=== PATIENT | male | born 1945 | race Caucasian/White ===

== ENCOUNTER 2023-02-08 11:10 | Emergency (ER) | payer OTHER ==
--- OUTSIDE RECORDS SUMMARY | 2023-02-08 11:16 | XMS REPORT | Continuity of Care Document ---
:1945 Author Organization [facility] t Address [address] [place] [address] Care Team Providers Name Role Phone Asked, No Pcp Primary Care Physician Unavailable REBA SAUNDERS Attending Clinician Unavailable Joseph Christopher MD Attending Clinician JOSEPH CHRISTOPHER Attending Clinician Unavailable Doctor Unassigned, [place] Attending Clinician Unavailable BRANDIE ORTIZ Attending Clinician Unavailable BRANDIE ORTIZ Attending Clinician Unavailable Brandie Ortiz DO Attending Clinician SAMSON BEE Attending Clinician Unavailable Reba Saunders MD Attending Clinician REBA SAUNDERS Admitting Clinician Unavailable JOSEPH CHRISTOPHER Admitting Clinician Unavailable Payers Payer Name Policy Type Policy Number Effective Date Expiration Date S ource [employer] DUAL [id number] 2021 COORDINATION HMO SNP 00:00:00 Problems Condition Condition Condition Status Onset Resolution Last Treating Co mments Source Name Details Category Date Date Treatment Clinician Date HFrEF HFrEF Disease Active Univers (heart (heart 4-10 ity of failure failure 00:00: [place] with with 00 Medical reduced reduced Branch ejection ejection fraction) fraction) PAD PAD Disease Active Univers (periphera (periphera 4-10 it y of l artery l artery 00:00: [place] disease) disease) 00 Medica l Branch Cigarette Cigarette Disease Active Uni vers smoker smoker 4-10 ity of 00:00: [place] 00 Medical Branch Benign Benign Disease Active 2020-06 Overview: Univer s prostatic prostatic 08-03 Formattin i ty of hyperplasi hyperplasi 00:00: g of this [place] a with a with 00 note Medical urinary urinary might be Branch frequency frequency different from the original. Added automatic ally from request for surgery [id number] Dizziness Dizziness Disease Active Met hodi 8 st 00:00: Hospita 00 l Cerebrovas Cerebrovas Disease Active M ethodi cular cular 12-21 st accident accident 00:00: Hospit a (CVA) (CVA) 00 l Unstable Unstable Disease Active Metho di angina angina 01-17 st 00:00: Hospita 00 l Leukocytos Leukocytos Disease Active M ethodi is is 01-17 st 00:00: Hospita 00 l Left upper Left upper Disease Active U nivers extremity extremity 01-01 ity of numbness numbness 00:00: [place] 00 Medical Branch Malnutriti Malnutriti Disease Active U nivers on on 01-01 ity of 00:00: [place] 00 Medical Branch Transient Transient Disease Active Met hodi global global [address] amnesia amnesia 00:00: Hospita 00 l Chest pain 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 TIA TIA Disease Active 2015-06 Univers (transient (transient 1-16 it y of ischemic ischemic 00:00: [place] attack) attack) 00 Medical Branch Essential Essential Disease Active 2015-06 Uni vers hypertensi hypertensi 1-16 it y of on on 00:00: [place] 00 Medical Branch Chest pain Chest pain Disease Active 2015-06 U nivers at rest at rest 1-15 ity of 00:00: [place] 00 Medical Branch Allergies, Adverse Reactions, Alerts Allergy Allergy Status Severity Reaction(s) Onset Inactive Treating Comm ents Source Name Type Date Date Clinician Penicill Propensi Active Rash Method i ins ty to 5-24 st adverse 00:00: Hospita reaction 00 l s to drug Penicill Propensi Active Rash 2015-06 Univer s ins ty to 1-15 ity of adverse 00:00: [place] reaction 00 Medical s Branch Penicill Propensi Active Rash 2015-06 Univer s ins ty to 1-15 ity of adverse 00:00: [place] reaction 00 Medical s Branch PENICILL Drug Active Rash 2015-06 Univers INS Class 1-15 ity of 00:00: [place] 00 [facility] Social History Social Habit Start Date Stop Date Quantity Comments Source History of tobacco Cigarette Smoker University of use [facility] Sexual [facility] Exposure to 2022-10-26 2022-11-05 Not sure University of SARS-CoV-2 (event) 00:00:00 12:54:00 [facility] Cigarette 2022-10-05 2022-10-05 University of pack-years 00:00:00 00:00:00 [facility] History of Social 2019-04-26 2019-04-[address] function 00:00:00 00:00:00 Hospital Tobacco Comment 2019-04-26 2019-04-26 5-6 cigs/day [facility] 00:00:00 00:00:00 Hospital Cigarettes smoked 2019-04-26 2019-04-[address] current (pack per 00:00:00 00:00:00 Hospita l day) - Reported Alcohol intake 2019-04-26 2019-04-26 Current [facility] 00:00:00 00:00:00 non-drinker of Hospital alcohol (finding) Tobacco use and 2019-04-26 2019-04-26 User of [facility] exposure 00:00:00 00:00:00 smokeless Hospital tobacco Sex Ass[birth year] At [birth year] [facility] 00:00:00 00:00:00 Hospital Smoking Status Start Date Stop Date Source Smokes tobacco daily 2022-10-05 00:00:00 [facility] Medical Branch Medications Ordered Filled Start Stop Current Ordering Indication Dosage Frequency Signature Comments Components Source Medication Medication Date Date Medication? Clinician (SIG) Name Name fluticasone Yes [id number] 1{puff} Inhale 1 Univers -umeclidin- 5-11 Puff in ity o f vilanter 00:00: the [place] (LE morning. Medical ELLIPTA) Branch 100-62.5-25 mcg DsDv albuterol Yes [id number] 2{puff} Inhale 2 Univers 90 5-11 Puffs ity of mcg/actuati 00:00: every 6 [place] as on inhaler 00 (six) Medical hours as Branch needed for Wheezing or Shortness of Breath. fluticasone Yes [id number] 1{puff} Inhale 1 Univers -umeclidin- 5-11 Puff in ity o f vilanter 00:00: the [place] (LEGY morning. Medical ELLIPTA) Branch 100-62.5-25 mcg DsDv albuterol Yes [id number] 2{puff} Inhale 2 Univers 90 5-11 Puffs ity of mcg/actuati 00:00: every 6 [place] as on inhaler 00 (six) Medical hours as Branch needed for Wheezing or Shortness of Breath. fluticasone Yes [id number] 1{puff} Inhale 1 Univers -umeclidin- 5-11 Puff in ity o f vilanter 00:00: the [place] (LEGY . Medical ELLIPTA) Branch 100-62.5-25 mcg DsDv albuterol 2022-0 Yes [id number] 2{puff} Inhale 2 Univers 90 5-11 Puffs ity of mcg/actuati 00:00: every 6 [place] as on inhaler 00 (six) Medical hours as Branch needed for Wheezing or Shortness of Breath. fluticasone 2022-0 Yes [id number] 1{puff} Inhale 1 Univers -umeclidin- 5-11 Puff in ity o f vilanter 00:00: the [place] (GY . Medical ELLIPTA) Branch 100-62.5-25 mcg DsDv albuterol 2022-0 Yes [id number] 2{puff} Inhale 2 Univers 90 5-11 Puffs ity of mcg/actuati 00:00: every 6 [place] as on inhaler 00 (six) Medical hours as Branch needed for Wheezing or Shortness of Breath. fluticasone 2022-0 Yes [id number] 1{puff} Inhale 1 Univers -umeclidin- 5-11 Puff in ity o f vilanter 00:00: the [place] (LE . Medical ELLIPTA) Branch 100-62.5-25 mcg DsDv albuterol 2022-0 Yes [id number] 2{puff} Inhale 2 Univers 90 5-11 Puffs ity of mcg/actuati 00:00: every 6 [place] as on inhaler 00 (six) Medical hours as Branch needed for Wheezing or Shortness of Breath. atorvastati 2022-0 Yes Univer s n 10 mg 5-09 ity of tablet 00:00: [place] 00 Medical Branch metFORMIN 2023-0 Yes Univers 500 mg 5-09 ity of tablet 00:00: [place] Medical [facility] atorvastati 2023-0 Yes Univer s n 10 mg 5-09 ity of tablet 00:00: 00 Medical Branch metFORMIN 2023-0 Yes Univers 500 mg 5-09 ity of tablet 00:00: Medical Branch atorvastati 2023-0 Yes Univer s n 10 mg 5-09 ity of tablet 00:00: [place] 00 Medical Branch metFORMIN 2023-0 Yes Univers 500 mg 5-09 ity of tablet 00:00: Medical Branch atorvastati 2022-0 Yes Univer s n 10 mg 5-09 ity of tablet 00:00: [place] Medical Branch metFORMIN 3-0 Yes Univers 500 mg 5-09 ity of tablet 00:00: [place] [facility] atorvastati 3-0 Yes Univer s n 10 mg 5-09 ity of tablet 00:00: [place] Medical [facility] metFORMIN 3-0 Yes Univers 500 mg 5-09 ity of tablet 00:00: [place] Medical Branch metoprolol 2022-0 2023- No 100mg Take 1 Uni vers succinate 4-10 04-10 tablet by ity of XL 100 mg 13:45: 00:00 mouth in [place] as 24 hr 13 :00 the Medical tablet morning. Branch metoprolol 2022-0 3- No 100mg Take 1 Uni vers succinate 4-10 04-10 tablet by ity of XL 100 mg 13:45: 00:00 mouth in [place] as 24 hr 13 :00 the Medical tablet morning. Branch sotaloL 80 2022-0 2023- No 80mg Take 1 Univ ers mg tablet 4-10 04-10 tablet by ity of 13:45: 00:00 mouth in [place] 07 :00 the Medical morning Branch and 1 tablet in the evening. sotaloL 80 3-0 3- No 80mg Take 1 Univ ers mg tablet 4-10 04-10 tablet by ity of 13:45: 00:00 mouth in [place] 07 :00 the Medical morning Branch and 1 tablet in the evening. rOPINIRole 2022-0 Yes 1mg Take 1 Unive rs 1 mg tablet 4-10 tablet by ity of 13:32: mouth at [place] [address] bedtime. Medical Branch pantoprazol 2022-0 Yes 40mg Take 1 Univ ers e 40 mg EC 4-10 tablet by ity of tablet 13:32: mouth in [place] [address] the Medical morning Branch and 1 tablet in the evening. furosemide 3-0 Yes 40mg Take 1 Unive rs 40 mg 4-10 tablet by ity of tablet 13:32: mouth in [place] [address] the Medical morning. Branch aspirin 81 3-0 Yes 81mg Take 1 Unive rs mg chewable 4-10 tablet by ity of tablet 13:32: mouth in [place] [address] the Medical morning. Branch traZODone 2022-0 Yes 100mg Take 1 Unive rs 100 mg 4-10 tablet by ity of tablet 13:32: mouth at [place] [address] bedtime. Medical Branch predniSONE 3-0 Yes 10mg Take 1 Unive rs 10 mg 4-10 tablet by ity of tablet 13:32: mouth in [place] [address] the Medical morning. Branch alfuzosin 2022-0 Yes 10mg Take 1 Univer s 10 mg 24 hr 4-10 tablet by ity of tablet 13:32: mouth in [place] [address] the Medical morning. Branch Iron, 2022-0 Yes Take by Univers Carbonyl 45 4-10 mouth. ity of mg Tab 13:32: [place] [address] Medical Branch spironolact 2022-0 Yes 25mg Take 1 Univ ers one 25 mg 4-10 tablet by ity o f tablet 13:32: mouth in [place] [address] the Medical morning Branch and 1 tablet in the evening. lisinopriL 2022-0 Yes 40mg Take 1 Unive rs 40 mg 4-10 tablet by ity of tablet 13:32: mouth in [place] [address] the Medical morning. Branch rOPINIRole 2022-0 Yes 1mg Take 1 Unive rs 1 mg tablet 4-10 tablet by ity of 13:32: mouth at [place] [address] bedtime. Medical Branch pantoprazol 2022-0 Yes 40mg Take 1 Univ ers e 40 mg EC 4-10 tablet by ity of tablet 13:32: mouth in [place] [address] the Medical morning Branch and 1 tablet in the evening. furosemide 3-0 Yes 40mg Take 1 Unive rs 40 mg 4-10 tablet by ity of tablet 13:32: mouth in [place] [address] the Medical morning. Branch aspirin 81 2022-0 Yes 81mg Take 1 Unive rs mg chewable 4-10 tablet by ity of tablet 13:32: mouth in [place] [address] the Medical morning. Branch traZODone 3-0 Yes 100mg Take 1 Unive rs 100 mg 4-10 tablet by ity of tablet 13:32: mouth at [place] [address] bedtime. Medical Branch predniSONE 3-0 Yes 10mg Take 1 Unive rs 10 mg 4-10 tablet by ity of tablet 13:32: mouth in [place] [address] the Medical morning. Branch alfuzosin 2022-0 Yes 10mg Take 1 Univer s 10 mg 24 hr 4-10 tablet by ity of tablet 13:32: mouth in [place] [address] the Medical morning. Branch Iron, 2022-0 Yes Take by Univers Carbonyl 45 4-10 mouth. ity of mg Tab 13:32: [place] [address] Medical Branch spironolact 2022-0 Yes 25mg Take 1 Univ ers one 25 mg 4-10 tablet by ity o f tablet 13:32: mouth in [place] [address] the Medical morning Branch and 1 tablet in the evening. lisinopriL 2022-0 Yes 40mg Take 1 Unive rs 40 mg 4-10 tablet by ity of tablet 13:32: mouth in [place] [address] the Medical morning. Branch rOPINIRole 2022-0 Yes 1mg Take 1 Unive rs 1 mg tablet 4-10 tablet by ity of 13:32: mouth at [place] [address] bedtime. Medical Branch pantoprazol 2022-0 Yes 40mg Take 1 Univ ers e 40 mg EC 4-10 tablet by ity of tablet 13:32: mouth in [place] [address] the Medical morning Branch and 1 tablet in the evening. furosemide 2022-0 Yes 40mg Take 1 Unive rs 40 mg 4-10 tablet by ity of tablet 13:32: mouth in [place] [address] the Medical morning. Branch aspirin 81 2022-0 Yes 81mg Take 1 Unive rs mg chewable 4-10 tablet by ity of tablet 13:32: mouth in [place] [address] the Medical morning. Branch traZODone 2022-0 Yes 100mg Take 1 Unive rs 100 mg 4-10 tablet by ity of tablet 13:32: mouth at [place] [address] bedtime. Medical Branch predniSONE 3-0 Yes 10mg Take 1 Unive rs 10 mg 4-10 tablet by ity of tablet 13:32: mouth in [place] [address] the Medical morning. Branch alfuzosin 2022-0 Yes 10mg Take 1 Univer s 10 mg 24 hr 4-10 tablet by ity of tablet 13:32: mouth in [place] [address] the Medical morning. Branch Iron, 2022-0 Yes Take by Univers Carbonyl 45 4-10 mouth. ity of mg Tab 13:32: [place] [address] Medical Branch spironolact 2022-0 Yes 25mg Take 1 Univ ers one 25 mg 4-10 tablet by ity o f tablet 13:32: mouth in [place] [address] the Medical morning Branch and 1 tablet in the evening. lisinopriL 2023-0 Yes 40mg Take 1 Unive rs 40 mg 4-10 tablet by ity of tablet 13:32: mouth in [place] [address] the Medical morning. Branch rOPINIRole 3-0 Yes 1mg Take 1 Unive rs 1 mg tablet 4-10 tablet by ity of 13:32: mouth at [place] [address] bedtime. Medical Branch pantoprazol 2023-0 Yes 40mg Take 1 Univ ers e 40 mg EC 4-10 tablet by ity of tablet 13:32: mouth in [place] [address] the Medical morning Branch and 1 tablet in the evening. furosemide 2023-0 Yes 40mg Take 1 Unive rs 40 mg 4-10 tablet by ity of tablet 13:32: mouth in [place] [address] the Medical morning. Branch aspirin 81 3-0 Yes 81mg Take 1 Unive rs mg chewable 4-10 tablet by ity of tablet 13:32: mouth in [place] [address] the Medical morning. Branch traZODone 3-0 Yes 100mg Take 1 Unive rs 100 mg 4-10 tablet by ity of tablet 13:32: mouth at [place] [address] bedtime. Medical Branch predniSONE 3-0 Yes 10mg Take 1 Unive rs 10 mg 4-10 tablet by ity of tablet 13:32: mouth in [place] [address] the Medical morning. Branch alfuzosin 3-0 Yes 10mg Take 1 Univer s 10 mg 24 hr 4-10 tablet by ity of tablet 13:32: mouth in [place] [address] the Medical morning. Branch Iron, 2022-0 Yes Take by Univers Carbonyl 45 4-10 mouth. ity of mg Tab 13:32: [place] [address] Medical Branch spironolact 3-0 Yes 25mg Take 1 Univ ers one 25 mg 4-10 tablet by ity o f tablet 13:32: mouth in [place] [address] the Medical morning Branch and 1 tablet in the evening. lisinopriL 2023-0 Yes 40mg Take 1 Unive rs 40 mg 4-10 tablet by ity of tablet 13:32: mouth in [place] [address] the Medical morning. Branch rOPINIRole 2023-0 Yes 1mg Take 1 Unive rs 1 mg tablet 4-10 tablet by ity of 13:32: mouth at [place] [address] bedtime. Medical Branch pantoprazol 2023-0 Yes 40mg Take 1 Univ ers e 40 mg EC 4-10 tablet by ity of tablet 13:32: mouth in [place] [address] the Medical morning Branch and 1 tablet in the evening. furosemide 2023-0 Yes 40mg Take 1 Unive rs 40 mg 4-10 tablet by ity of tablet 13:32: mouth in [place] [address] the Medical morning. Branch aspirin 81 2022-0 Yes 81mg Take 1 Unive rs mg chewable 4-10 tablet by ity of tablet 13:32: mouth in [place] [address] the Medical morning. Branch traZODone 3-0 Yes 100mg Take 1 Unive rs 100 mg 4-10 tablet by ity of tablet 13:32: mouth at [place] [address] bedtime. Medical Branch predniSONE 3-0 Yes 10mg Take 1 Unive rs 10 mg 4-10 tablet by ity of tablet 13:32: mouth in [place] [address] the Medical morning. Branch alfuzosin 2022-0 Yes 10mg Take 1 Univer s 10 mg 24 hr 4-10 tablet by ity of tablet 13:32: mouth in [place] [address] the Medical morning. Branch Iron, 2022-0 Yes Take by Univers Carbonyl 45 4-10 mouth. ity of mg Tab 13:32: [place] [address] Medical Branch spironolact 2022-0 Yes 25mg Take 1 Univ ers one 25 mg 4-10 tablet by ity o f tablet 13:32: mouth in [place] [address] the Medical morning Branch and 1 tablet in the evening. lisinopriL 2022-0 Yes 40mg Take 1 Unive rs 40 mg 4-10 tablet by ity of tablet 13:32: mouth in [place] [address] the Medical morning. Branch rOPINIRole 2022-0 Yes 1mg Take 1 Unive rs 1 mg tablet 4-10 tablet by ity of 13:32: mouth at [place] [address] bedtime. Medical Branch pantoprazol 3-0 Yes 40mg Take 1 Univ ers e 40 mg EC 4-10 tablet by ity of tablet 13:32: mouth in [place] [address] the Medical morning Branch and 1 tablet in the evening. furosemide 2023-0 Yes 40mg Take 1 Unive rs 40 mg 4-10 tablet by ity of tablet 13:32: mouth in [place] [address] the Medical morning. Branch aspirin 81 2022-0 Yes 81mg Take 1 Unive rs mg chewable 4-10 tablet by ity of tablet 13:32: mouth in [place] [address] the Medical morning. Branch traZODone 2023-0 Yes 100mg Take 1 Unive rs 100 mg 4-10 tablet by ity of tablet 13:32: mouth at [place] [address] bedtime. Medical Branch predniSONE 2023-0 Yes 10mg Take 1 Unive rs 10 mg 4-10 tablet by ity of tablet 13:32: mouth in [place] [address] the Medical morning. Branch alfuzosin 3-0 Yes 10mg Take 1 Univer s 10 mg 24 hr 4-10 tablet by ity of tablet 13:32: mouth in [place] [address] the Medical morning. Branch Iron, 2022-0 Yes Take by Univers Carbonyl 45 4-10 mouth. ity of mg Tab 13:32: [place] [address] Medical Branch spironolact 3-0 Yes 25mg Take 1 Univ ers one 25 mg 4-10 tablet by ity o f tablet 13:32: mouth in [place] [address] the Medical morning Branch and 1 tablet in the evening. lisinopriL 2022-0 Yes 40mg Take 1 Unive rs 40 mg 4-10 tablet by ity of tablet 13:32: mouth in [place] [address] the Medical morning. Branch rOPINIRole 2022-0 Yes 1mg Take 1 Unive rs 1 mg tablet 4-10 tablet by ity of 13:32: mouth at [place] [address] bedtime. Medical Branch pantoprazol 2022-0 Yes 40mg Take 1 Univ ers e 40 mg EC 4-10 tablet by ity of tablet 13:32: mouth in [place] [address] the Medical morning Branch and 1 tablet in the evening. furosemide 3-0 Yes 40mg Take 1 Unive rs 40 mg 4-10 tablet by ity of tablet 13:32: mouth in [place] [address] the Medical morning. Branch aspirin 81 3-0 Yes 81mg Take 1 Unive rs mg chewable 4-10 tablet by ity of tablet 13:32: mouth in [place] [address] the Medical morning. Branch traZODone 3-0 Yes 100mg Take 1 Unive rs 100 mg 4-10 tablet by ity of tablet 13:32: mouth at [place] [address] bedtime. Medical Branch predniSONE 3-0 Yes 10mg Take 1 Unive rs 10 mg 4-10 tablet by ity of tablet 13:32: mouth in [place] [address] the Medical morning. Branch alfuzosin 3-0 Yes 10mg Take 1 Univer s 10 mg 24 hr 4-10 tablet by ity of tablet 13:32: mouth in [place] [address] the Medical morning. Branch Iron, 2022-0 Yes Take by Univers Carbonyl 45 4-10 mouth. ity of mg Tab 13:32: [place] [address] Medical Branch spironolact 2022-0 Yes 25mg Take 1 Univ ers one 25 mg 4-10 tablet by ity o f tablet 13:32: mouth in [place] [address] the Medical morning Branch and 1 tablet in the evening. lisinopriL 2022-0 Yes 40mg Take 1 Unive rs 40 mg 4-10 tablet by ity of tablet 13:32: mouth in [place] [address] the Medical morning. Branch rOPINIRole 2022-0 Yes 1mg Take 1 Unive rs 1 mg tablet 4-10 tablet by ity of 13:32: mouth at [place] [address] bedtime. Medical Branch pantoprazol 2022-0 Yes 40mg Take 1 Univ ers e 40 mg EC 4-10 tablet by ity of tablet 13:32: mouth in [place] [address] the Medical morning Branch and 1 tablet in the evening. furosemide 2022-0 Yes 40mg Take 1 Unive rs 40 mg 4-10 tablet by ity of tablet 13:32: mouth in [place] [address] the Medical morning. Branch aspirin 81 2022-0 Yes 81mg Take 1 Unive rs mg chewable 4-10 tablet by ity of tablet 13:32: mouth in [place] [address] the Medical morning. Branch traZODone 2022-0 Yes 100mg Take 1 Unive rs 100 mg 4-10 tablet by ity of tablet 13:32: mouth at [place] [address] bedtime. Medical Branch predniSONE 2022-0 Yes 10mg Take 1 Unive rs 10 mg 4-10 tablet by ity of tablet 13:32: mouth in [place] [address] the Medical morning. Branch alfuzosin 2022-0 Yes 10mg Take 1 Univer s 10 mg 24 hr 4-10 tablet by ity of tablet 13:32: mouth in [place] [address] the Medical morning. Branch Iron, 2022-0 Yes Take by Univers Carbonyl 45 4-10 mouth. ity of mg Tab 13:32: [place] [address] Medical Branch spironolact 2022-0 Yes 25mg Take 1 Univ ers one 25 mg 4-10 tablet by ity o f tablet 13:32: mouth in [place] [address] the Medical morning Branch and 1 tablet in the evening. lisinopriL 2022-0 Yes 40mg Take 1 Unive rs 40 mg 4-10 tablet by ity of tablet 13:32: mouth in [place] 11 the Medical morning. Branch carvediloL 3-0 Yes [id number] 25mg Take 1 U nivers 25 mg 4-10 tablet by ity of tablet 00:00: mouth in [place] 00 the [facility] morning [place] and 1 tablet in the evening. Take with meals. carvediloL 2023-0 Yes [id number] 25mg Take 1 U nivers 25 mg 4-10 tablet by ity of tablet 00:00: mouth in [place] 00 the [facility] morning [place] and 1 tablet in the evening. Take with meals. carvediloL 3-0 Yes [id number] 25mg Take 1 U nivers 25 mg 4-10 tablet by ity of tablet 00:00: mouth in [place] [address] the [facility] morning [place] and 1 tablet in the evening. Take with meals. carvediloL 3-0 Yes [id number] 25mg Take 1 U nivers 25 mg 4-10 tablet by ity of tablet 00:00: mouth in [place] [address] the [facility] and 1 tablet in the evening. Take with meals. carvediloL 3-0 Yes [id number] 25mg Take 1 U nivers 25 mg 4-10 tablet by ity of tablet 00:00: mouth in [place] [address] the [facility] and 1 tablet in the evening. Take with meals. carvediloL 3-0 Yes [id number] 25mg Take 1 U nivers 25 mg 4-10 tablet by ity of tablet 00:00: mouth in [place] [address] the [facility] and 1 tablet in the evening. Take with meals. carvediloL 3-0 Yes [id number] 25mg Take 1 U nivers 25 mg 4-10 tablet by ity of tablet 00:00: mouth in [address] and 1 tablet in the evening. Take with meals. carvediloL 3-0 Yes [id number] 25mg Take 1 U nivers 25 mg 4-10 tablet by ity of tablet 00:00: mouth in [address] and 1 tablet in the evening. Take with meals. spironolact 2020-06 Yes 25mg Take 25 mg Univers one 25 mg 2-06 by mouth 2 ity of tablet 11:30: (two) [place] 41 times Medical daily. Branch spironolact 2020-06 Yes 25mg Take 25 mg Univers one 25 mg 2-06 by mouth 2 ity of tablet 11:30: (two) [place] 41 times Medical daily. Branch spironolact 2020-06 Yes 25mg Take 25 mg Univers one 25 mg 2-06 by mouth 2 ity of tablet 11:30: (two) [place] 41 times Medical daily. Branch spironolact 2020-06 Yes 25mg Take 25 mg Univers one 25 mg 2-06 by mouth 2 ity of tablet 11:30: (two) [place] 41 times Medical daily. Branch aspirin 81 2020-06 Yes 81mg Take 81 mg U nivers mg chewable 2-06 by mouth ity of tablet 11:29: daily. [place] [address] Medical Branch traZODone 2020-06 Yes 100mg Take 100 Uni vers 100 mg 2-06 mg by ity of tablet 11:29: mouth at [place] [address] bedtime. Medical Branch metoprolol 2020-06 Yes 100mg Take 100 Un emmie succinate 2-06 mg by ity of XL 100 mg 11:29: mouth [place] 24 hr 31 daily. Medical tablet Branch predniSONE 2020-06 Yes 10mg Take 10 mg U nivers 10 mg 2-06 by mouth ity of tablet 11:29: daily. [place] [address] Medical Branch alfuzosin 2020-06 Yes 10mg Take 10 mg Un emmie 10 mg 24 hr 2-06 by mouth ity of tablet 11:29: daily. [place] [address] Medical Branch sotaloL 80 2020-06 Yes 80mg Take 80 mg U nivers mg tablet 2-06 by mouth 2 ity of 11:29: (two) [place] [address] times Medical daily. Branch Iron, 2020-06 Yes Take by Univers Carbonyl 45 2-06 mouth. ity of mg Tab 11:29: [place] [address] Medical Branch aspirin 81 2020-06 Yes 81mg Take 81 mg U nivers mg chewable 2-06 by mouth ity of tablet 11:29: daily. [place] [address] Medical Branch traZODone 2020-06 Yes 100mg Take 100 Uni vers 100 mg 2-06 mg by ity of tablet 11:29: mouth at [place] [address] bedtime. Medical Branch metoprolol 2020-06 Yes 100mg Take 100 Un emmie succinate 2-06 mg by ity of XL 100 mg 11:29: mouth [place] 24 hr 31 daily. Medical tablet Branch predniSONE 2020-06 Yes 10mg Take 10 mg U nivers 10 mg 2-06 by mouth ity of tablet 11:29: daily. [place] [address] Medical Branch alfuzosin 2020-06 Yes 10mg Take 10 mg Un emmie 10 mg 24 hr 2-06 by mouth ity of tablet 11:29: daily. [place] [address] Medical Branch sotaloL 80 2020-06 Yes 80mg Take 80 mg U nivers mg tablet 2-06 by mouth 2 ity of 11:29: (two) [place] [address] times Medical daily. Branch Iron, 2020-06 Yes Take by Univers Carbonyl 45 2-06 mouth. ity of mg Tab 11:29: [place] [address] Medical Branch aspirin 81 2020-06 Yes 81mg Take 81 mg U nivers mg chewable 2-06 by mouth ity of tablet 11:29: daily. [place] [address] Medical Branch traZODone 2020-06 Yes 100mg Take 100 Uni vers 100 mg 2-06 mg by ity of tablet 11:29: mouth at [place] [address] bedtime. Medical Branch metoprolol 2020-06 Yes 100mg Take 100 Un emmie succinate 2-06 mg by ity of XL 100 mg 11:29: mouth [place] 24 hr 31 daily. Medical tablet Branch predniSONE 2020-06 Yes 10mg Take 10 mg U nivers 10 mg 2-06 by mouth ity of tablet 11:29: daily. [place] [address] Medical Branch alfuzosin 2020-06 Yes 10mg Take 10 mg Un emmie 10 mg 24 hr 2-06 by mouth ity of tablet 11:29: daily. [place] [address] Medical Branch sotaloL 80 2020-06 Yes 80mg Take 80 mg U nivers mg tablet 2-06 by mouth 2 ity of 11:29: (two) [place] [address] times Medical daily. Branch Iron, 2020-06 Yes Take by Univers Carbonyl 45 2-06 mouth. ity of mg Tab 11:29: [place] [address] Medical Branch aspirin 81 2020-06 Yes 81mg Take 81 mg U nivers mg chewable 2-06 by mouth ity of tablet 11:29: daily. [place] [address] Medical Branch traZODone 2020-06 Yes 100mg Take 100 Uni vers 100 mg 2-06 mg by ity of tablet 11:29: mouth at [place] [address] bedtime. Medical Branch metoprolol 2020-06 Yes 100mg Take 100 Un emmie succinate 2-06 mg by ity of XL 100 mg 11:29: mouth [place] 24 hr 31 daily. Medical tablet Branch predniSONE 2020-06 Yes 10mg Take 10 mg U nivers 10 mg 2-06 by mouth ity of tablet 11:29: daily. [place] [address] Medical Branch alfuzosin 2020-06 Yes 10mg Take 10 mg Un emmie 10 mg 24 hr 2-06 by mouth ity of tablet 11:29: daily. [place] [address] Medical Branch sotaloL 80 2020-06 Yes 80mg Take 80 mg U nivers mg tablet 2-06 by mouth 2 ity of 11:29: (two) [place] 31 times Medical daily. Branch Iron, 2020-06 Yes Take by Univers Carbonyl 45 2-06 mouth. ity of mg Tab 11:29: [place] [facility] rOPINIRole 2020-06 Yes 1mg Take 1 mg Un emmie 1 mg tablet 2-06 by mouth ity of 11:29: at [place] 30 bedtime. Medical Branch pantoprazol 2020-06 Yes 40mg Take 40 mg Univers e 40 mg EC 2-06 by mouth 2 ity of tablet 11:29: (two) [place] 30 times Medical daily. Branch furosemide 2020-06 Yes 40mg Take 40 mg U nivers 40 mg 2-06 by mouth ity of tablet 11:29: daily. [place] [facility] rOPINIRole 2020-06 Yes 1mg Take 1 mg Un emmie 1 mg tablet 2-06 by mouth ity of 11:29: at [place] 30 bedtime. Medical Branch pantoprazol 2020-06 Yes 40mg Take 40 mg Univers e 40 mg EC 2-06 by mouth 2 ity of tablet 11:29: (two) [place] 30 times Medical daily. Branch furosemide 2020-06 Yes 40mg Take 40 mg U nivers 40 mg 2-06 by mouth ity of tablet 11:29: daily. [place] [facility] rOPINIRole 2020-06 Yes 1mg Take 1 mg Un emmie 1 mg tablet 2-06 by mouth ity of 11:29: at [place] 30 bedtime. Medical Branch pantoprazol 2020-06 Yes 40mg Take 40 mg Univers e 40 mg EC 2-06 by mouth 2 ity of tablet 11:29: (two) [place] 30 times Medical daily. Branch furosemide 2020-06 Yes 40mg Take 40 mg U nivers 40 mg 2-06 by mouth ity of tablet 11:29: daily. [place] [address] Medical Branch rOPINIRole 2020-06 Yes 1mg Take 1 mg Un emmie 1 mg tablet 2-06 by mouth ity of 11:29: at [place] 30 bedtime. Medical Branch pantoprazol 2020-06 Yes 40mg Take 40 mg Univers e 40 mg EC 2-06 by mouth 2 ity of tablet 11:29: (two) [place] 30 times Medical daily. Branch furosemide 2020-06 Yes 40mg Take 40 mg U nivers 40 mg 2-06 by mouth ity of tablet 11:29: daily. [place] [address] Medical Branch aspirin 325 2020-06- 325mg Take 325 Univers mg tablet 08-03 12-06 mg by ity of 11:25: 00:00 mouth [place] 23 :00 daily. Medical Branch aspirin 0 Yes 325mg QD Take 325 Metho di (ECOTRIN) 8-[address] 325 MG 11:28: mouth [facility] enter[facility] 30 daily. l coated tablet lisinopril Yes 20mg QD Take 20 mg M ethodi (PRINIVIL,Z 8-[address] ESTRIL) 20 11:28: daily. Hospi ta mg tablet 30 l atorvastati Yes 10mg QD Take 10 mg Methodi n (LIPITOR) 8-[address] 10 MG 11:28: daily. Hospita tablet 30 l aspirin 2018-0 Yes 325mg QD Take 325 Metho di (ECOTRIN) 8-[address] 325 MG 11:28: mouth [facility] enteric 30 daily. l coated tablet lisinopril Yes 20mg QD Take 20 mg M ethodi (PRINIVIL,Z 8-[address] ESTRIL) 20 11:28: daily. Hospi ta mg tablet 30 l atorvastati 2019 Yes 10mg QD Take 10 mg Methodi n (LIPITOR) 8-[address] 10 MG 11:28: daily. Hospita tablet 30 l aspirin 2019-0 Yes 325mg QD Take 325 Metho di (ECOTRIN) 8-[address] 325 MG 11:28: mouth [facility]osp[facility] enteric 30 daily. l coated tablet lisinopril Yes 20mg QD Take 20 mg M ethodi (PRINIVIL,Z 8-[address] ESTRIL) 20 11:28: daily. Hospi ta mg tablet 30 l atorvastati 2019-0 Yes 10mg QD Take 10 mg Methodi n (LIPITOR) 8-[address] 10 MG 11:28: daily. Hospita tablet 30 l aspirin 2019-0 Yes 325mg QD Take 325 Metho di (ECOTRIN) 8-[address] 325 MG 11:28: mouth [facility]ospita enteric 30 daily. l coated tablet lisinopril 2019-0 Yes 20mg QD Take 20 mg M ethodi (PRINIVIL,Z 8-[address] ESTRIL) 20 11:28: daily. Hospi ta mg tablet 30 l atorvastati 2019-0 Yes 10mg QD Take 10 mg Methodi n (LIPITOR) 8-[address] 10 MG 11:28: daily. Hospita tablet 30 l aspirin 2019-0 Yes 325mg QD Take 325 Metho di (ECOTRIN) 8-[address] 325 MG 11:28: mouth [facility]ospita enteric 30 daily. l coated tablet lisinopril 20190 Yes 20mg QD Take 20 mg M ethodi (PRINIVIL,Z 8-[address] ESTRIL) 20 11:28: daily. Hospi ta mg tablet 30 l atorvastati 20190 Yes 10mg QD Take 10 mg Methodi n (LIPITOR) 8-[address] 10 MG 11:28: daily. Hospita tablet 30 l aspirin 2019-0 Yes 325mg QD Take 325 Metho di (ECOTRIN) 8-[address] 325 MG 11:28: mouth [facility]ospita enteric 30 daily. l coated tablet lisinopril 2019-0 Yes 20mg QD Take 20 mg M ethodi (PRINIVIL,Z 8-[address] ESTRIL) 20 11:28: daily. Hospi ta mg tablet 30 l atorvastati 2019-0 Yes 10mg QD Take 10 mg Methodi n (LIPITOR) 8-[address] 10 MG 11:28: daily. Hospita tablet 30 l aspirin 2019-0 Yes 325mg QD Take 325 Metho di (ECOTRIN) 8-[address] 325 MG 11:28: mouth [facility]ospita enteric 30 daily. l coated tablet lisinopril 2019-0 Yes 20mg QD Take 20 mg M ethodi (PRINIVIL,Z 8-[address] ESTRIL) 20 11:28: daily. Hospi ta mg tablet 30 l atorvastati Yes 10mg QD Take 10 mg Methodi n (LIPITOR) 8-[address] 10 MG 11:28: daily. Hospita tablet 30 l alfuzosin 2017-06 Yes 10mg QD Take 10 mg Me thodi (UROXATRAL) 0-[address] 10 mg 24 hr 00:00: daily. Hosp aury tablet 00 l alfuzosin 2017-06 Yes 10mg QD Take 10 mg Me thodi (UROXATRAL) 0-[address] 10 mg 24 hr 00:00: daily. Hosp aury tablet 00 l alfuzosin 2017-06 Yes 10mg QD Take 10 mg Me thodi (UROXATRAL) 0-[address] 10 mg 24 hr 00:00: daily. Hosp aury tablet 00 l alfuzosin 2017-06 Yes 10mg QD Take 10 mg Me thodi (UROXATRAL) 0-[address] 10 mg 24 hr 00:00: daily. Hosp aury tablet 00 l alfuzosin 2017-06 Yes 10mg QD Take 10 mg Me thodi (UROXATRAL) 0-[address] 10 mg 24 hr 00:00: daily. Hosp aury tablet 00 l alfuzosin 2017-06 Yes 10mg QD Take 10 mg Me thodi (UROXATRAL) 0-[address] 10 mg 24 hr 00:00: daily. Hosp aury tablet 00 l alfuzosin 2017-06 Yes 10mg QD Take 10 mg Me thodi (UROXATRAL) 0-[address] 10 mg 24 hr 00:00: daily. Hosp aury tablet 00 l metoprolol Yes 25mg Q.5D 25 mg 2 Meth [place] tartrate 9-05 (two) st (LOPRESSOR) 00:00: times a Hos chhaya 25 mg day. l tablet metoprolol Yes 25mg Q.5D 25 mg 2 Meth [place] tartrate 9-05 (two) st (LOPRESSOR) 00:00: times a Hos chhaya 25 mg day. l tablet metoprolol Yes 25mg Q.5D 25 mg 2 Meth [place] tartrate 9-05 (two) st (LOPRESSOR) 00:00: times a Hos chhaya 25 mg day. l tablet metoprolol Yes 25mg Q.5D 25 mg 2 Meth [place] tartrate 9-05 (two) st (LOPRESSOR) 00:00: times a Hos chhaya 25 mg 00 day. l tablet metoprolol Yes 25mg Q.5D 25 mg 2 Meth [place] tartrate 9-05 (two) st (LOPRESSOR) 00:00: times a Hos chhaya 25 mg 00 day. l tablet metoprolol Yes 25mg Q.5D 25 mg 2 Meth [place] tartrate 9-05 (two) st (LOPRESSOR) 00:00: times a Hos chhaya 25 mg 00 day. l tablet metoprolol Yes 25mg Q.5D 25 mg 2 Meth [place] tartrate 905 (two) st (LOPRESSOR) 00:00: times a Hos chhaya 25 mg 00 day. l tablet pantoprazol 2020- No 40mg Take 1 Uni vers e 40 mg EC 01-03 tablet by ity of tablet 00:00: 00:00 mouth [place] 00 :00 daily. Medical Branch nitroglycer 2020- No .4mg Place 1 Un emmie in 0.4 mg 01-02 tablet ity of sublingual 00:00: 00:00 [place] tablet 00 :00 tongue Medical every 5 Branch (five) minutes as needed for Chest pain. clopidogrel 2020- No 75mg Take 1 Uni vers (PLAVIX) 75 01-02 tablet by it y of mg tablet 00:00: 00:00 mouth [place] 00 :00 daily. Medical Branch clopidogrel Yes TAKE 1 Meth [place] (PLAVIX) 75 6-[address] mg tablet 00:00: MOUTH Hospita 00 EVERY DAY l WITH ASPIRIN clopidogrel Yes TAKE 1 Meth [place] (PLAVIX) 75 6-[address] mg tablet 00:00: MOUTH Hospita 00 EVERY DAY l WITH ASPIRIN clopidogrel Yes TAKE 1 Meth [place] (PLAVIX) 75 6-[address] mg tablet 00:00: MOUTH Hospita 00 EVERY DAY l WITH ASPIRIN clopidogrel Yes TAKE 1 Meth [place] (PLAVIX) 75 6-[address] mg tablet 00:00: MOUTH Hospita 00 EVERY DAY l WITH ASPIRIN clopidogrel Yes TAKE 1 Meth [place] (PLAVIX) 75 6-[address] mg tablet 00:00: MOUTH Hospita 00 EVERY DAY l WITH ASPIRIN clopidogrel Yes TAKE 1 Meth [place] (PLAVIX) 75 6-[address] mg tablet 00:00: MOUTH Hospita 00 EVERY DAY l WITH ASPIRIN clopidogrel Yes TAKE 1 Meth [place] (PLAVIX) 75 6-[address] mg tablet 00:00: MOUTH Hospita 00 EVERY DAY l WITH ASPIRIN furosemide No 20mg Take 1 Univ ers 20 mg 09-30 tablet by ity of tablet 00:00: 00:00 mouth [place] 00 :00 every Medical morning. Branch atorvastati No 40mg Take 1 Uni vers n 40 mg 09-30 tablet by ity of tablet 00:00: 00:00 mouth [place] 00 :00 daily. Medical Branch metoprolol No 25mg Take 1 Univ ers tartrate 25 09-30 tablet by it y of mg tablet 00:00: 00:00 [place] (two) Medical times Branch daily. lisinopril No 10mg Take 1 Univ ers 10 mg 09-30 tablet by ity of tablet 00:00: 00:00 mouth [place] 00 :00 daily. Medical Branch Vital Signs Vital Name Observation Time Observation Value Comments Source Systolic blood 2022-11-05 18:28:00 172 mm[Hg] Univer sity [facility] Diastolic blood 2022-11-05 18:28:00 74 mm[Hg] Unive [facility] Heart rate 2022-11-05 18:28:00 81 /min [facility] Oxygen saturation in 2022-11-05 18:28:00 95 /min [facility] Arterial blood by [facility] Pulse oximetry Branch Body height 2022-11-05 18:26:00 165.1 cm [facility] Body weight 2022-11-05 18:26:00 61.145 kg [facility] BMI 2022-11-05 18:26:00 22.43 kg/m2 [facility] Systolic blood 2022-10-05 18:33:00 169 mm[Hg] Univer sity [facility] Diastolic blood 2022-10-05 18:33:00 60 mm[Hg] Unive rsity of pressure [place] [facility] Heart rate 2022-10-05 18:33:00 64 /min [facility] [place] [facility] Respiratory rate 2022-10-05 18:24:00 23 /min Univ ers[facility] [place] [facility] Body height 2022-10-05 18:24:00 165.1 cm [facility] [place] [facility] Body weight 2022-10-05 18:24:00 60.737 kg [facility] [place] [facility] BMI 2022-10-05 18:24:00 22.28 kg/m2 [facility] [place] [facility] Oxygen saturation in 2022-10-05 18:24:00 96 /min University of Arterial blood by [place] [facility] Pulse oximetry Branch Systolic blood 2021-06-02 17:25:00 154 mm[Hg] Univer sity of pressure [place] [facility] Diastolic blood 2021-06-02 17:25:00 53 mm[Hg] Unive rsity of pressure [place] [facility] Heart rate 2021-06-02 17:24:00 57 /min [facility] [place] [facility] Respiratory rate 2021-06-02 17:24:00 18 /min Univ ers[facility] [place] [facility] Body height 2021-06-02 17:24:00 162.6 cm [facility] [place] [facility] Body weight 2021-06-02 17:24:00 57.698 kg [facility] [place] [facility] BMI 2021-06-02 17:24:00 21.83 kg/m2 [facility] [place] [facility] Oxygen saturation in 2021-06-02 17:24:00 99 /min University of Arterial blood by [facility] Pulse oximetry Branch Procedures Procedure Date / Time Performing Clinician Source Performed INSURANCE CORRESPONDENCE 2022-11-19 05:01:00 Doctor Unassigned, [facility] [place] [facility] REFERRAL- 2022-10-20 05:01:00 Doctor Unassigned, [facility] REQUEST/RESPONSE [place] [facility] ASSIGNMENT OF BENEFITS 2022-10-05 17:36:27 Doctor Unassigned, [facility] [place] [facility] REFERRAL- 2022-08-26 06:01:00 Doctor Unassigned, [facility] REQUEST/RESPONSE [place] [facility] REFERRAL- 2022-02-28 05:01:00 Doctor Unassigned, [facility] REQUEST/RESPONSE [place] [facility] POCT URINALYSIS AUTO 2021-06-02 20:47:00 [facility] Plan of Care Planned Activity Planned Date Details Comments Source Future Scheduled 2023-02-08 COVID-19 [facility]ACCINE (#[facility] 11:13:26 [code = COVID-19 VACCINE (#1)] Future Scheduled 2023-02-08 SHINGLES VACCINES (1 [facility] Test 11:13:26 of 2) [code = SHINGLES VACCINES (1 of 2)] Future Scheduled 2023-02-08 65+ [facility]OCOCC[address] [facility] Test 11:13:26 VACCINE (1 - PCV) [code = 65+ PNEUMOCOCCAL VACCINE (1 - PCV)] Future Scheduled 2023-02-08 INFLUENZA VACCINE [facility] Test 11:13:26 [code = INFLUENZA VACCINE] Future Scheduled 2023-01-28 COVID-19 VACCINE (#1) [facility] 18:40:05 [code = COVID-19 VACCINE (#1)] Future Scheduled 2023-01-28 SHINGLES VACCINES (1 [facility] Test 18:40:05 of 2) [code = SHINGLES VACCINES (1 of 2)] Future Scheduled 2023-01-28 65+ [facility]OCOCCAL [facility] Test 18:40:05 VACCINE (1 - PCV) [code = 65+ PNEUMOCOCCAL VACCINE (1 - PCV)] Future Scheduled 2023-01-28 INFLUENZA VACCINE [facility] Test 18:40:05 [code = INFLUENZA VACCINE] Future Scheduled 2023-01-28 COVID-19 VACCINE (#1) [facility] 18:40:05 [code = COVID-19 VACCINE (#1)] Future Scheduled 2023-01-28 SHINGLES VACCINES (1 [facility] Test 18:40:05 of 2) [code = SHINGLES VACCINES (1 of 2)] Future Scheduled 2023-01-28 65+ [facility]OCOCCAL [facility] Test 18:40:05 VACCINE (1 - PCV) [code = 65+ PNEUMOCOCCAL VACCINE (1 - PCV)] Future Scheduled 2023-01-28 INFLUENZA VACCINE [facility] Test 18:40:05 [code = INFLUENZA VACCINE] Future Scheduled 2022-11-26 [facility] 09:13[facility]36 [code = COVID-19 VACCINE (#1)] Future Scheduled 2022-11-26 SHINGLES VACCINES (1 [facility] Test 09:13:36 of 2) [code = SHINGLES VACCINES (1 of 2)] Future Scheduled 2022-11-26 65+ PNEUMOCOCCAL [facility] Hospital Test 09:13:36 VACCINE (1 - PCV) [code = 65+ PNEUMOCOCCAL VACCINE (1 - PCV)] Future Scheduled 2022-11-26 INFLUENZA VACCINE Method [facility] Hospital Test 09:13:36 [code = INFLUENZA VACCINE] Future Scheduled 2022-11-26 COVID[facility]19 [facility] 09:13:36 [code = COVID-19 VACCINE (#1)] Future Scheduled 2022-11-26 SHINGLES VACCINES (1 Met [facility] Test 09:13:36 of 2) [code = SHINGLES VACCINES (1 of 2)] Future Scheduled 2022-11-26 65+ PNEUMOCOCCAL Methodi Hospital Test 09:13:36 VACCINE (1 - PCV) [code = 65+ PNEUMOCOCCAL VACCINE (1 - PCV)] Future Scheduled 2022-11-26 INFLUENZA VACCINE Method [facility] Hospital Test 09:13:36 [code = INFLUENZA VACCINE] Future Scheduled 2022-09-07 COVID-19 VACCINE (#1) [facility] Test 10:24:49 [code = COVID-19 VACCINE (#1)] Future Scheduled 2022-09-07 SHINGLES VACCINES (1 [facility] Test 10:24:49 of 2) [code = SHINGLES VACCINES (1 of 2)] Future Scheduled 2022-09-07 65+ PNEUMOCOCCAL Methodi Hospital Test 10:24:49 VACCINE (1 - PCV) [code = 65+ PNEUMOCOCCAL VACCINE (1 - PCV)] Future Scheduled 2022-09-07 INFLUENZA VACCINE Method ist Hospital Test 10:24:49 [code = INFLUENZA VACCINE] Future Scheduled 2022-06-11 COVID[facility]19 [facility] Test 21:50:54 [code = COVID-19 VACCINE (#1)] Future Scheduled 2022-06-11 SHINGLES VACCINES (1 [facility] Test 21:50:54 of 2) [code = SHINGLES VACCINES (1 of 2)] Future Scheduled 2022-06-11 65+ PNEUMOCOCCAL Methodi Hospital Test 21:50:54 VACCINE (1 - PCV) [code = 65+ PNEUMOCOCCAL VACCINE (1 - PCV)] Future Scheduled 2022-06-11 INFLUENZA VACCINE Method is Hospital Test 21:50:54 [code = INFLUENZA VACCINE] Encounters Start End Encounter Admission Attending Care Care Encounter Source Date/Time Date/Time Type Type Clinicians Facility Department ID 2021-07-07 Outpatient R BELL [facility] SUU [id number] Univers 16:30:20 REBA ity [facility] [facility] 2023-02-05 2023-02-05 Outpatient [facility] Mickey 09:27:18 09:27:18 [id number] [facility] 2023-02-04 2023-02-04 Outpatient [facility] Mickey 16:32:01 16:32:01 [id number] [facility] 2023-01-29 2023-01-29 Outpatient [facility] Mickey 09:24:33 09:24:33 [id number] F Thorp 2022-12-04 2022-12-04 Outpatient [facility] Mickey 08:27:04 08:27:04 [id number] [facility] 2022-12-03 2022-12-03 Letter [facility] [id number] Univers 00:00:00 00:00:00 (Out) Joseph LOCKWOOD [id number] ity of [id number] [phone] Mi dical NAL [address] [place] [address] 2022-12-02 2022-12-02 Telephone [facility] [id number] Univers 00:00:00 00:00:00 Joseph LOCKWOOD [id number] [place]y [id number] [id number] Mi dical NAL 9 [facility] 2022-11-30 2022-11-30 Outpatient [facility] [id number] Mickey 09:09:06 09:09:06 [id number] F Roman 2022-11-26 2022-11-26 Outpatient R ASHWIN, [facility] [id number] Univers 09:13:34 23:59:00 JOSEPH edwards f [facility] 2022-11-26 2022-11-[address] [id number] Univers 13:00:00 13:00:00 JOSEPH edwards [facility] 2022-11-19 2022-11-19 Orders Doctor TOMAS 1.2.840.114 [id number] Univers 00:00:00 00:00:00 Only Unassigned, JAELYN [id number] ity of [place] [facility] [id number] Deangelo as [phone] [address] 2022-11-05 2022-11-05 Outpatient R BRANDIE ORTIZ [facility] [id number] Univers 13:30:00 13:39:16 BRANDIE ORTIZ i ty of [facility] 2022-11-05 2022-11-05 [facility] 1.2.840.114 [id number] Univers 13:30:00 13:39:16 Visit Brandie LOCKWOOD [id number] i ty [id number] [id number] [address] 2022-10-20 2022-10-20 Orders Doctor TOMAS 1.2.840.114 [id number] Univers 00:00:00 00:00:00 Only Unassigned, JAELYN [id number] ity of [place] [facility] [id number] Deangelo as [id number] [address] 2022-10-05 2022-10-[address] [facility] [id number] Univers 13:20:00 13:51:43 JACKTHAD berenice edwards [facility] 2022-10-05 2022-10-05 Office [facility] [id number] Univers 13:20:00 13:51:43 Visit Joseph LOCKWOOD 350.1.13.10 ity of [facility] [place] [id number] Mi dical [facility] 059 [facility] 2022-10-05 2022-10-05 Orders Doctor TOMAS 1.2.840.114 [id number] Univers 00:00:00 00:00:00 Only Unassigned, JAELYN 350.1.13.10 ity of [place] [facility] 4.2.7.2.686 Deangelo as [id number] [address] 2022-09-07 2022-09-07 Outpatient [facility] Mickey 10:24:08 10:24:08 [id number] [facility] 2022-09-02 2022-09-02 Outpatient [facility] Mickey 09:56:59 09:56:59 [id number] F Thorp 2022-08-27 2022-08-27 Outpatient [facility] Mickey 09:49:13 09:49:13 [id number] F Thorp 2022-08-26 2022-08-26 Outpatient [facility] Mickey 09:17:19 09:17:19 [id number] F Thorp 2022-08-26 2022-08-26 Orders Doctor TOMAS 1.2.840.114 [id number] Univers 00:00:00 00:00:00 Only Unassigned, JAELYN 350.1.13.10 ity of [place] [facility] [id number] Deangelo as [id number] [address] 2022-06-01 2022-06-[address] [facility] [id number] Univers 08:00:00 08:00:00 REBA ity of [facility] 2022-05-14 2022-05-14 Emergency ER ROHIT, [facility] [id number] [place] 13:16:00 15:35:00 SAMSON [id number] [facility] 2022-05-14 2022-05-14 emergency [id number] 13:16:00 15:35:00 [id number] 2022-05-13 2022-05-13 Outpatient [facility] [id number] Mickey 13:20:16 13:20:16 [id number] F Roman 2022-02-28 2022-02-28 Orders Doctor TOMAS 1.2.840.114 [id number] Univers 00:00:00 00:00:00 Only Unassigned, JAELYN 350.1.13.10 ity of [place] [facility] [id number] Deangelo as [id number] [address] 2021-07-16 2021-07-16 Outpatient R [facility] [id number] Univers 08:45:00 08:45:00 REBA ity [facility] 2021-06-02 2021-06-02 Outpatient R [facility] [id number] Univers 11:30:00 11:51:46 REBA ity [facility] 2021-06-02 2021-06-02 Outpatient R [facility] [id number] Univers 11:30:00 11:51:46 [facility] 2021-06-02 2021-06-02 Office [facility] 1.2.840.114 [id number] Univers 11:14:51 11:51:46 Visit Reba LOCKWOOD 350.1.13.10 i ty of [place] [id number] Mi dic[address] 2021-05-03 2021-05-03 Orders Doctor TOMAS 1.2.840.114 [id number] Univers 00:00:00 00:00:00 Only Unassigned, JAELYN 350.1.13.10 ity of [place] [facility] [id number] Deangelo as [id number] [address] Results Test Description Test Time Test Comments Results Result Comments Source EGFR, CREATININE AND CYSTATIN-C 2023-02-06 05:23:26 Test Item Value Reference Range Interpretation Comme nts CYSTATIN-C (test code = 1.3 MG/L 0.6-1.2 H 26346) CREATININE (test code = 1.25 MG/DL 0.80-1.40 2214) eGFR CYS-CR.(2020 CKD-EPI) 57 ML/MIN/1.73 >59 L UNLESS OTHERWISE INDICATED, (test code = 29618) ALL TEST ING PERFORMED AT [facility] [employer], [place]. [address] [place] [address] 7 3663 LIGHT COIL WINDER: Glen ESTRELLA DASH aPpa [id number] [place] [id number] NOTE:2023-02-02 06:03:54 Test Item Value Reference Range Interpretation Comments NOTE: (test code = (NOTE) IN ACCOR DANCE WITH FEDERAL 998) GUIDELINES REQU IRING ALL VERBAL REQUESTS FOR LABORATORY TEST S TO BE ACCOMPANIED BY WRITTEN AUTHORIZATION W ITHIN 30 DAYS OF THIS REQUEST , PLEASE SIGN BELOW AND RETUR N A COPY OF THIS REPORT BY FAX TO THE LABORATORY SCAN OSCAR DEPARTMENT AT . PHYSICIAN'S SIG NATURE DATE UNLESS OTHERWISE INDIC ATED, ALL TESTING PERFORM ED AT [facility] [employer], [place]. [address] [place] [address] [phone] LABORATORY DIRE CTOR: Glen SANTANAIA NUMBER [id number] CAP ACCREDITATION N O. [id number] HEMOGLOBIN [id number] 22:22:19 Test Item Value Reference Range Interpretation Comments HEMOGLOBIN A1c (test 6.7 % 4.2-5.6 H AMERIC AN DIABETES code = 45483) ASSOCIATION IDELINES FOR HGB A1C: PREDIABETES/INC REASED RISK . . . . . . . 5.7 -6.4% DIAGNOSIS OF DI ABETES . . . . . . . . . >=6 .5% WITH CONFIRMATION OR APPROPRIATE SYMPTOMS NOTE: ASSAY MAY BE AFFECTED BY HEMOGLOBINOPATH IES (SICKLE CELL ANEMIA, S- C DISEASE, OTHERS) OR MILLA FICIALLY LOWERED BY DECR EASED RED CELL SURVIVAL ( HEMOLYTIC ANEMIAS, BLOOD LOSS, ETC.). CONSIDER ALTERN ATE TESTING OR LABORATORY C ONSULTATION. COMPREHENSIVE METABOLIC [id number] 05:36:21 Test Item Value Reference Range Interpretation Comments GLUCOSE (test code = 102 MG/DL 70-99 H 2216) BUN (test code = 11 MG/DL 8-23 2207) CREATININE (test 1.00 MG/DL 0.80-1.40 code = 221) eGFR (2020 CKD-EPI) 77 ML/MIN/1.73 >60 (test code = 12806) CALC BUN/CREAT (test 11 RATIO 6-28 code = 2235) SODIUM (test code = 139 MEQ/L 544-424 7834) POTASSIUM (test code 4.8 MEQ/L 3.5-5.4 = 2227) CHLORIDE (test code 105 MEQ/L 95-107 = 2214) CARBON DIOXIDE (test 23 MEQ/L 19-31 code = 220) CALCIUM (test code = 8.5 MG/DL 8.5-10.5 2208) PROTEIN, TOTAL (test 6.1 G/DL 6.1-8.3 code = 2228) ALBUMIN (test code = 3.8 G/DL 3.5-5.2 2200) CALC GLOBULIN (test 2.3 G/DL 1.9-3.7 code = 2239) CALC A/G RATIO (test 1.7 RATIO 1.0-2.6 code = 2233) BILIRUBIN, TOTAL <0.2 MG/DL See_Comment [Automated message] (test code = 220) The syste m which generated this result transmit hal reference range : <=1.2. The refe rence range was not u sed to interpret th is result as normal/abnormal . ALKALINE PHOSPHATASE 73 U/L 40-125 (test code = 220) AST (test code = 15 U/L 9-50 2217) ALT (test code = 11 U/L 5-50 2218) LIPID [id number] 05:36:21 Test Item Value Reference Range Interpretation Comments CHOLESTEROL (test 195 MG/DL <200 code = 2210) TRIGLYCERIDES (test 56 MG/DL <150 code = 2232) HDL CHOLESTEROL (test 77 MG/DL >39 code = 2220) CALC LDL CHOL (test 104 MG/DL <100 H NOTE: C ALCULATED LDL code = 2237) IS BASED ON JEFF-SNOW METHOD WHICHINCLUDES ADJUSTABLE TRIGLYCERIDE:VL DL CHOLESTEROL RAT IO.THIS FACTOR VARIES B Y MEASURED TRIGLY CERIDE AND NON-HDLCHOL ESTEROL CONCENTRATIONS WITH INCREASED CALCU LATED LDL SEENIN HIGH ER TRIGLYCERIDE OR LOWER NON-HDL SPECIME NS. FOR MOREINFORMATION , SEE CLIENT ANNOUNCE MENT AT [email or web address] [email or web address] LDL/HDL 1.35 RATIO <3.55 (test code = 2238) HEMOGLOBIN [id number] 04:48:48 Test Item Value Reference Range Interpretation Comments HEMOGLOBIN A1c (test 6.5 % 4.2-5.6 H AMERIC AN DIABETES code = 77895) ASSOCIATION IDELINES FOR HGB A1C: PREDIABETES/INC REASED RISK . . . . . . . 5.7 -6.4% DIAGNOSIS OF DI ABETES . . . . . . . . . >=6 .5% WITH CONFIRMATION OR APPROPRIATE SYMPTOMS NOTE: ASSAY MAY BE AFFECTED BY HEMOGLOBINOPATH IES (SICKLE CELL ANEMIA, S- C DISEASE, OTHERS) OR MILLA FICIALLY LOWERED BY DECR EASED RED CELL SURVIVAL ( HEMOLYTIC ANEMIAS, BLOOD LOSS, ETC.). CONSIDER ALTERN ATE TESTING OR LABORATORY C ONSULTATION. [facility] has imp ortant pathology staff changes effective 08/26. New pathology s taff will provide uninter rupted, excellent patie nt care and clinical consul tation. See URL: [email or web address]. UNLESS OTHE RWISE INDICATED, ALL TESTING PERFORMED AT [facility] [employer] [address] [place] [id number] LABORATOR Y DIRECTOR: HARDY LEE M.D. IA NUMBER [id number] CAP ACCREDITATION N O. [id number] CULTURE, BLOOD, 2 [id number] 10:45:09 Test Item Value Reference Range Interpretation Comments CULTURE, SPECIMEN NUMBER: CULTURE, B LOOD, SITE BLOOD, SITE 1 [id number] SPECIMEN NUM ROS: (test code = [id number] SPECI MEN [id number]) COMMENT: #1 RENITA RCE: BLOOD REPORT [facility]: FINAL FINAL REP ORT: 03/11/2022 NO G ROWTH AFTER 5 DAYS INCUBATION PRELIMINARY BLO OD CULTURE: 2021 NO GROWTH TO DA TE. FURTHER REPORTS WILL NOT BE GENERATE D UNTIL THE CULTU RE BECOMES POSITIV E OR COMPLETED.POSIT AIXA RESULTS WILL BE CALLED TO THE DOCTOR'S OFFICE IMMEDIATELY UPO N RECOGNITION. CULTURE, SPECIMEN NUMBER: CULTURE, B LOOD, SITE BLOOD, SITE 2 [id number] SPECIMEN NUM ROS: (test code = [id number] SPECI MEN [id number]) COMMENT: #2 RENITA RCE: BLOOD REPORT [facility]: FINAL FINAL REP ORT: 03/11/2022 NO G GEORGE AFTER 5 DAYS INCUBATION PRELIMINARY BLO OD CULTURE: 2021 NO GROWTH TO DA TE. FURTHER REPORTS WILL NOT BE GENERATE D UNTIL THE CULTU RE BECOMES POSITIV E OR COMPLETED.POSIT AIXA RESULTS WILL BE CALLED TO THE DOCTOR'S OFFICE IMMEDIATELY UPO N RECOGNITION. PSA, [id number] 06:42:14 Test Item Value Reference Range Interpretation Comments PSA, TOTAL 1.73 NG/ML See_Comment NOTE: Methodol ogy is Yani (test code = Odilon Electroch emiluminescence 2606) Immunoassay tra ceable to WHO reference stand [place] 96/760. UNLESS OTHERWIS E INDICATED, ALL TESTING PERFORM ED ATCLINICAL PATHOLOGY [facility]. [address] [place] [id number] LABORATORY DIRE CTOR: HARDY GARRETT M.D. CLIA NUMBER [id number] [place]. [id number] [A utomated message] The sy stem which generated this result transmitted ref erence range: <=4.00. The ref erence range was not used to int erpret this result as hasmukh l/abnormal. LIPID [id number] 06:40:51 Test Item Value Reference Range Interpretation Comments CHOLESTEROL (test 200 MG/DL <200 H code = 2210) TRIGLYCERIDES (test 51 MG/DL <150 code = 2232) HDL CHOLESTEROL (test 81 MG/DL >39 code = 2220) CALC LDL CHOL (test 106 MG/DL <100 H NOTE: C ALCULATED LDL code = 2237) IS BASED ON JEFF-SNOW METHOD WHICHINCLUDES ADJUSTABLE TRIGLYCERIDE:VL DL CHOLESTEROL RAT IO.THIS FACTOR VARIES B Y MEASURED TRIGLY CERIDE AND NON-HDLCHOL ESTEROL CONCENTRATIONS WITH INCREASED CALCU LATED LDL SEENIN HIGH ER TRIGLYCERIDE OR LOWER NON-HDL SPECIME NS. FOR MOREINFORMATION , SEE CLIENT ANNOUNCE MENT AT [email or web address] LDL/HDL 1.31 RATIO <3.55 (test code = 2238) COMPREHENSIVE METABOLIC [id number] 06:40:51 Test Item Value Reference Range Interpretation Comments GLUCOSE (test code = 108 MG/DL 70-99 H 2216) BUN (test code = 20 MG/DL 8-23 2207) CREATININE (test 1.36 MG/DL 0.80-1.40 code = 221) eGFR (2020 CKD-EPI) 53 ML/MIN/1.73 >60 L (test code = 35104) CALC BUN/CREAT (test 15 RATIO 6-28 code = 2235) SODIUM (test code = 142 MEQ/L 274-915 2231) POTASSIUM (test code 4.8 MEQ/L 3.5-5.4 = 2227) CHLORIDE (test code 104 MEQ/L 95-107 = 2214) CARBON DIOXIDE (test 28 MEQ/L 19-31 code = 220) CALCIUM (test code = 9.2 MG/DL 8.5-10.5 2208) PROTEIN, TOTAL (test 7.0 G/DL 6.1-8.3 code = 2228) ALBUMIN (test code = 4.2 G/DL 3.5-5.2 2200) CALC GLOBULIN (test 2.8 G/DL 1.9-3.7 code = 224) CALC A/G RATIO (test 1.5 RATIO 1.0-2.6 code = 223) BILIRUBIN, TOTAL 0.2 MG/DL See_Comment [Automated message] (test code = 220) The syste m which generated this result transmit hal reference range : <=1.2. The refe rence range was not u sed to interpret th is result as normal/abnormal . ALKALINE PHOSPHATASE 82 U/L 40-125 (test code = 220) AST (test code = 16 U/L 9-50 2217) ALT (test code = 12 U/L 5-50 2218) CBC W/AUTO DIFF WITH [id number] 01:57:11 Test Item Value Reference Range Interpretation Comments WBC (test code = 15.1 K/UL 3.5-11.0 H 1001) RBC (test code = 4.71 M/UL 4.50-6.10 1002) HEMOGLOBIN (test 13.9 G/DL 13.5-17.0 code = 1003) HEMATOCRIT (test 41.2 % 40.0-51.0 code = 1004) MCV (test code = 87.5 fL 80.0-99.0 1005) MCH (test code = 29.5 PG 25.0-33.0 1006) MCHC (test code = 33.7 G/DL 31.0-36.0 1007) RDW (test code = 14.3 % 11.5-15.0 1038) NEUTROPHILS (test 68.3 % code = 1008) LYMPHOCYTES (test 15.2 % code = 1010) MONOCYTES (test code 12.4 % = 1011) EOSINOPHILS (test 2.5 % code = 1012) BASOPHILS (test code 0.8 % = 1013) IMMATURE 0.8 % GRANULOCYTES (test code = 1036) NUCLEATED RBCS (test 0.0 /100 See_Comment [Autom ated message] code = 1065) WBC'S The system TSO3 generated this result transmitted ref erence range: 0.0. The reference range was not used to int erpret this result as normal/abnormal . PLATELET COUNT (test 487 K/UL 130-400 H code = 1015) ABSOLUTE NEUTROPHILS 10.30 K/UL 1.50-7.50 H (test code = 1066) ABSOLUTE LYMPHOCYTES 2.29 K/UL 1.00-4.00 (test code = 1067) ABSOLUTE MONOCYTES 1.87 K/UL 0.20-1.00 H (test code = 1068) ABSOLUTE EOSINOPHILS 0.37 K/UL 0.00-0.50 (test code = 1040) ABSOLUTE BASOPHILS 0.12 K/UL 0.00-0.20 (test code = 1069) ABS IMMATURE 0.12 K/UL 0.00-0.10 H GRANULOCYTES (test code = 1020) ABS NUCLEATED RBCS 0.00 K/UL 0.00-0.11 UNLESS O THERWISE (test code = 38865) INDICATE D, ALL TESTING PERFORM ED ATCLINICAL PATH [facility]LOGY [facility] [address] [place] [address] [facility] DIRECTOR: HARDY GARRETT M.D. CLIA NUMBER [id number] CAP ACCREDITATION N O. [id number] POCT URINALYSIS, [id number] 20:48:00 Test Item Value Reference Range Interpretation Comments POCT U SP GRAV (test code = 1.010 mg/dl 1.005-1.025 5) POCT PH U (test code = 3254) 5.0 mg/dl 5-8 POCT U LEUK EST (test code = Negative Negative - Negative 3263) POCT U NIT (test code = 3262) Negative Negative - Negative POCT U PROT (test code = Negative Negative - Negative 325) POCT U GLU (test code = 3256) Negative Negative - Negative POCT U KETONE (test code = Negative Negative - Negative 3258) POCT U UROBILI (test code = 0.2 mg/dl 0.2-1 3260) POCT U BILI (test code = Negative Negative - Negative 326) POCT U BLD (test code = 3257) Negative Negative - Negative POCT U COLOR (test code = Yellow 3266) POCT U APPEAR (test code = Clear 326) Lab Interpretation (test code Normal = 71887-4) [facility]
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
[2023-02-08 11:49] VITALS: BP 146/56; TEMP 97.9; O2SAT 99
== END 2023-02-08 11:44 | disposition home or self-care (01) ==
LOC: ER 11:10
DX: S61.211A Laceration without foreign body of left index finger without damage to nail, initial encounter (principal); V49.49XA Driver injured in collision with other motor vehicles in traffic accident, initial encounter; I25.2 Old myocardial infarction; F17.210 Nicotine dependence, cigarettes, uncomplicated; Z86.73 Personal history of transient ischemic attack (TIA), and cerebral infarction without residual deficits; Z88.0 Allergy status to penicillin
CPT/HCPCS: 99285

== ENCOUNTER 2024-02-10 00:29 | Inpatient (IN) | payer MEDICARE, OTHER ==
[2024-02-10] MEDS ORDERED: ALBUTEROL 2.5 MG/3 ML NEB SOL ONE (00:36)
[2024-02-10] MEDS ORDERED: MAGNESIUM SULFATE 1 gm IVPB 1 GM/100 ML BAG IV ONE (00:36)
[2024-02-10] MEDS ORDERED: IPRATROPIUM BROM 0.5MG/2.5ML ONE (00:36)
[2024-02-10] MEDS ORDERED: METHYLPREDNISOLONE 125 MG INJ ONE (01:04)
[2024-02-10 01:09] LABS: Arterial Blood Carboxyhemoglob 2.9 % (0-1.5); Blood Gas Oxyhemoglobin 93.8 % (94-97); Blood Gas THB 11.3 g/dl (12-18); Blood O2 Saturation 98.2 % (92-98.5)
[2024-02-10 01:19] LABS: Absolute Basophils 0.2 K/uL (0-0.5); Absolute Eosinophils 0.9 K/uL (0-0.5); Absolute Lymphocytes (CBC) 4.9 K/uL (0.7-4.9); Absolute Monocytes 2.1 K/uL (0.1-1.3); Absolute Neutrophil 8.4 K/uL (1.8-8.0); Basophils % 1.1 % (0-1.3); Eosinophils % 5.3 % (0-4.4); Hematocrit 34.9 % (39.6-49.0); Hemoglobin 11.1 g/dL (13.6-17.9); Lymphocytes % 29.5 % (15.3-44.8); MCH 28.6 pg (27.0-35.0); MCHC 31.9 g/dL (32.0-36.0); MCV 89.5 fL (80-100); MPV 8.5 fL (7.6-11.3); Neutrophils % 51.1 % (41.7-73.7); Platelets 469 thou/uL (152-406); Red Cell Distribution Width 16.2 % (12.1-15.2)
[2024-02-10 01:27] LABS: Albumin 2.8 g/dL (3.4-5.0); Albumin/Globulin Ratio 0.8 (1.1-1.8); Anion Gap 14.5 mEq/L (5.0-15.0); Bilirubin Total 0.3 mg/dL (0.2-1.0); Globulin 3.4 g/dL (2.3-3.5); Potassium 4.5 mEq/L (3.5-5.1); Protein, Total 6.2 g/dL (6.4-8.2)
[2024-02-10 02:01] LABS: PT Prothrombin Time 11.2 SECONDS (9.4-12.5); PTT, Activated Partial Thromb 30.1 SECONDS (24.3-36.9)
[2024-02-10] MEDS ORDERED: VANCOMYCIN 1 GM/VIAL ONE (02:43)
[2024-02-10] MEDS ORDERED: NA CHLORIDE 0.9% 250 ML ONE (02:43)
[2024-02-10] MEDS ORDERED: NA CHLORIDE 0.9% 100 ML ONE (02:44)
[2024-02-10] MEDS ORDERED: SODIUM BICARB 50 MEQ/50ML VIAL ONE (02:44)
[2024-02-10] MEDS ORDERED: CEFEPIME 1 GM/VIAL ONE (02:44)
[2024-02-10] MEDS ORDERED: NA CHLORIDE 0.9% 3,000 ML ONE (02:45)
--- NOTE | 2024-02-10 05:09 | P.HP ---
Certification for Inpatient Patient admitted to: Inpatient With expected LOS: <2 Midnights Patient will require the following post-hospital care: Home Health Services Practitioner: I am a practitioner with admitting privileges, knowledge of patient current condition, hospital course, and medical plan of care. Services: Services provided to patient in accordance with Admission requirements found in Title 42 Section 412.3 of the Code of Federal Regulations <Brittany Son - Last Filed: 02/10/24 06:18> Patient History Date of Service: 02/10/24 Reason for admission: Hypoxic respiratory failure History of Present Illness: 78-year-old male with a past medical history of COPD, asbestos, presents to the emergency room with shortness of breath. He reports wheezing for the last 3 to 4 days. He reports symptoms worse over the last hour. He reports use of home O2 at 2 L at baseline on arrival to the emergency room is 83% on 2 L he reports smoking history of 3 packs a day, currently smoking 1 pack a day, requesting to vape, pulmonary nodule, ER physician discussed results with patient and family at bedside. hypertensive urgency, BP 229 / 88; Pulse 124; Resp 34; Pulse Ox 84% on 2 lpm NC, Lactic acidosis 8, 2 A of bicarb given, cefepime 1 g, Solu-Medrol, magnesium, given, sepsis IV fluids given, plan to admit to ICU for sepsis without shock, chest pain with inspiration, COPD exacerbation, asbestos, calcified pleural plaques, Dr. Zambrano consulted, BiPAP ordered, CT of the chest e calcified central mesenteric lymph nodes measuring up to 1.5 cm. There are extensive mostly calcified bilateral pleural plaques. Central airways are patent. There is an irregular nodular opacity in the left upper lobe measuring 15 mm. There is moderate upper lung centrilobular emphysema. Abdomen: There are several small anterior hepatic cyst. There is no biliary dilatation. Gallbladder is normal in appearance. The pancreas and spleen are normal in appearance. Right adrenal adenoma measures 4.2 cm. Left adrenal gland is unremarkable. Kidneys are normal in size. There is nodular versus. Abdominal aorta is densely calcified without aneurysm. There is no free air. There is no retroperitoneal adenopathy. Pelvis: There is no bowel obstruction. Urinary bladder is unremarkable. There is no free fluid. Extensive calcified pleural plaques. Suspicious left solid pulmonary nodule within the upper lobe measuring 15 mm. Per Fleischner Society Guidelines, consider a noncontrast Chest CT at 3 months, a PET/CT, or tissue sampling. These guidelines do not apply to immunocompromised patients and patients with cancer. Follow up in patients with significant comorbidities as clinically warranted. For lung cancer screening, adhere to Lung-RADS guidelines. ER physician went over pulmonary nodule screening with patient and family at bedside. - Past Medical/Surgical History -: COPD -: L) Pulmonary nodule -: Pleural effusion -: Bilateral pleural calcifications, -: Hepatic cyst -: Asbestosis -: Hypertension - Social History Smoking Status: Heavy Tobacco smoker (>10 cigarettes/day) Alcohol use: Yes Caffeine use: Yes <Brittany Son - Last Filed: 02/10/24 06:18> Date of Service: 02/10/24 <Edda Hanson - Last Filed: 02/10/24 11:55> Review of Systems 10-point ROS is otherwise unremarkable <Brittany Son - Last Filed: 02/10/24 06:18> Physical Examination - Vital Signs Pulse: 87 Pulse Ox (%): 100 - Physical Exam General: Alert, Oriented x3, Mild distress HEENT: Atraumatic, Normocephalic Neck: 2+ carotid pulse no bruit, JVD not distended Respiratory: Normal air movement, Expiratory wheezes, Inspiratory wheezes Cardiovascular: Normal pulses, Regular rate/rhythm Capillary refill: <2 Seconds Gastrointestinal: Normal bowel sounds, Soft and benign Musculoskeletal: No clubbing, No swelling Neurological: Normal speech, Normal strength at 5/5 x4 extr, Other (Orthopneic with speech) - Studies Laboratory Data (last 24 hrs) 02/10/24 02/10/24 02/10/24 01:32 00:51 00:51 WBC 16.50 H Hgb 11.1 L Hct 34.9 L Plt Count 469 H PT 11.2 INR 1.00 APTT 30.1 Sodium 136 Potassium 4.5 BUN 20 H Creatinine 1.44 H Glucose 317 H Total Bilirubin 0.3 AST 164 H ALT 105 H Alkaline Phosphatase 111 <Brittany Son - Last Filed: 02/10/24 06:18> - Studies Laboratory Data (last 24 hrs) 02/10/24 02/10/24 02/10/24 01:32 00:51 00:51 WBC 16.50 H Hgb 11.1 L Hct 34.9 L Plt Count 469 H PT 11.2 INR 1.00 APTT 30.1 Sodium 136 Potassium 4.5 BUN 20 H Creatinine 1.44 H Glucose 317 H Total Bilirubin 0.3 AST 164 H ALT 105 H Alkaline Phosphatase 111 <Edda Hanson - Last Filed: 02/10/24 11:55> Assessment and Plan - Plan Assessment plan Acute hypoxic respiratory failure secondary to COPD exacerbation Lactic acidosis sepsis without shock chest pain with inspiration asbestos calcified pleural plaques Pulmonary nodule Dr. Zambrano consulted, BiPAP ordered,repeat ABG, Lactic ordered plan to admit to ICU on telemetry, nephrology eval for bicarb drip on lactic acid, pulmonology consult Duo nebs, IV antibiotics, steroids, BiPAP, possible bicarb drip 78-year-old male with a past medical history of COPD, asbestos, presents to the emergency room with shortness of breath. He reports wheezing for the last 3 to 4 days. He reports symptoms worse over the last hour. He reports use of home O2 at 2 L at baseline on arrival to the emergency room is 83% on 2 L he reports smoking history of 3 packs a day, currently smoking 1 pack a day, requesting to vape, pulmonary nodule, ER physician discussed results with patient and family at bedside. hypertensive urgency, BP 229 / 88; Pulse 124; Resp 34; Pulse Ox 84% on 2 lpm NC, Lactic acidosis 8, 2 A of bicarb given, cefepime 1 g, Solu-Medrol, magnesium, given, sepsis IV fluids given, CT of the chest e calcified central mesenteric lymph nodes measuring up to 1.5 cm. There are extensive mostly calcified bilateral pleural plaques. Central airways are patent. There is an irregular nodular opacity in the left upper lobe measuring 15 mm. There is moderate upper lung centrilobular emphysema. Abdomen: There are several small anterior hepatic cyst. There is no biliary dilatation. Gallbladder is normal in appearance. The pancreas and spleen are normal in appearance. Right adrenal adenoma measures 4.2 cm. Left adrenal gland is unremarkable. Kidneys are normal in size. There is nodular versus. Abdominal aorta is densely calcified without aneurysm. There is no free air. There is no retroperitoneal adenopathy. Pelvis: There is no bowel obstruction. Urinary bladder is unremarkable. There is no free fluid. Extensive calcified pleural plaques. Suspicious left solid pulmonary nodule within the upper lobe measuring 15 mm. Per Fleischner Society Guidelines, consider a noncontrast Chest CT at 3 months, a PET/CT, or tissue sampling. These guidelines do not apply to immunocompromised patients and patients with cancer. Follow up in patients with significant comorbidities as clinically warranted. For lung cancer screening, adhere to Lung-RADS guidelines. ER physician went over pulmonary nodule screening with patient and family at bedside. Hypertensive urgency As needed antihypertensive Telemetry Full code DVT heparin Diet clear liquid advance as tolerated Disposition Home with home O2 Discharge Plan: Home - Advance Directives Does patient have a Living Will: No Does patient have a Durable POA for Healthcare: No - Code Status/Comfort Care Code Status: Full Code Critical Care: Yes Time Spent Managing Pts Care (In Minutes): 65 <Brittany Son - Last Filed: 02/10/24 06:18> - Plan Pt seen and examined. I agree with the note by the VP OF [employer]. Pt is an 78 yo male with past medical history of COPD and asbestosis who presented with SOB for 4 days. On admission, pt was very hypoxic (83% on 2L BNC). ER physician placed BIPAP and his oxygenation improved. Pt reports cutting down on the number of packets of cigarettes he smokes. Lab studies show lactate of 8, troponin 1337, BNP 5115. At bedside, pt is in NAD> A/P: Acute COPD exacerbation: Will continue steroid, cefepime, duoneb, oxygen and BIPAp. Consulted Pulm. TRACY: Cr is 1.44. Will continue IVF, avoid nephrotoxins and monitor renal function. NSTEMI: troponin is 1337. Will r/o ACS. Continue heparin drip. Consulted cardiology Lung nodules: Per CT chest . 1.5cm central mesenteric lymph node and 15mm MCKENNA nodule. Will f//u repeat CT chest in 3 months. Htn: Continue home med Code: full <Edda Hanson - Last Filed: 02/10/24 11:55>
--- NOTE | 2024-02-10 05:19 | ER ---
Nurse's Notes [facility] Name: Dez Shepard Sr Age: 78 yrs Sex: Male : 1945 Arrival Date: 02/10/2024 Time: 00:29 Bed 15 Private MD: Diagnosis: Severe sepsis without septic shock;Chest pain on breathing;COPD/ Chronic obstructive pulmonary disease with (acute) exacerbation;Asbestosis, calcified pleural plaques, left lung pulmonary nodule;Elevated Troponin Presentation: 02/09 00:30 Chief complaint: Patient states: SOB times 3 days, worse tonight. Coronavirus screen: vc1 Client denies travel out of the [place] in the last 14 days. At this time, the client does not indicate any symptoms associated with coronavirus-19. Ebola Screen: Patient negative for fever greater than or equal to 101.5 degrees Fahrenheit, and additional compatible Ebola Virus Disease symptoms Patient denies exposure to infectious person. Patient denies travel to an Ebola-affected area in the 21 days before illness onset. No symptoms or risks identified at this time. Initial Sepsis Screen: Does the patient meet any 2 criteria? RR > 20 per min. HR > 90 bpm. Yes Does the patient have a suspected source of infection? No. Patient's initial sepsis screen is negative. Risk Assessment: Do you want to hurt yourself or someone else? Patient reports no desire to harm self or others. Onset of symptoms was February 07, 2024. Care prior to arrival: None. Activity prior to arrival: Hyperventilating. Mechanism of Injury: No Mechanism of Injury. Transition of care: patient was not received from another setting of care. 00:30 Method Of Arrival: Wheelchair vc1 00:30 Acuity: KEN 2 vc1 Historical: - Allergies: 01:08 PENICILLINS; vc1 - PMHx: 01:08 Chronic obstructive lung disease; vc1 - PSHx: 01:08 None; vc1 - Immunization history:: Adult Immunizations up to date. - Infectious Disease History:: Denies. - Social history:: Smoking status: Patient reports the use of cigarette tobacco products, smokes one-half pack cigarettes per day. Screenin:08 [facility] ED Fall Risk Assessment (Adult) History of falling in the last 3 months, al5 including since admission No falls in past 3 months (0 pts) Confusion or Disorientation No (0 pts) Intoxicated or Sedated No (0 pts) Impaired Gait No (0 pts) Mobility Assist Device Used No (0 pt) Altered Elimination No (0 pt) Score/Fall Risk Level 0 - 2 = Low Risk Oriented to surroundings, Maintained a safe environment, Hourly rounding (assess needs \T\ fall precautionary measures) done. Abuse screen: Denies threats or abuse. Denies injuries from another. Nutritional screening: No deficits noted. Tuberculosis screening: No symptoms or risk factors identified. Assessment: 01:09 General: Appears distressed, Behavior is cooperative. Pain: Denies pain. Neuro: Level al5 of Consciousness is awake, alert, obeys commands, Oriented to person, place, time, situation. Cardiovascular: Rhythm is sinus rhythm. Respiratory: Reports shortness of breath labored breathing Airway is patent Respiratory effort is even, labored, using tripod position, Respiratory pattern is regular, symmetrical, tachypnea Breath sounds with wheezes bilaterally. GI: No signs and/or symptoms were reported involving the gastrointestinal system. : No signs and/or symptoms were reported regarding the genitourinary system. EENT: No signs and/or symptoms were reported regarding the EENT system. Derm: Skin is intact, Skin is pink, warm \T\ dry. normal. Musculoskeletal: No signs and/or symptoms reported regarding the musculoskeletal system. 02:00 Reassessment: No changes from previously documented assessment. Patient and/or family al5 updated on plan of care and expected duration. Pain level reassessed. Patient is alert, oriented x 3, equal unlabored respirations, skin warm/dry/pink. 03:00 Reassessment: No changes from previously documented assessment. Patient and/or family al5 updated on plan of care and expected duration. Pain level reassessed. Patient is alert, oriented x 3, equal unlabored respirations, skin warm/dry/pink. 04:00 Reassessment: No changes from previously documented assessment. Patient and/or family al5 updated on plan of care and expected duration. Pain level reassessed. Patient is alert, oriented x 3, equal unlabored respirations, skin warm/dry/pink. 05:00 Reassessment: No changes from previously documented assessment. Patient and/or family al5 updated on plan of care and expected duration. Pain level reassessed. Patient is alert, oriented x 3, equal unlabored respirations, skin warm/dry/pink. 06:03 General: gave nurse to nurse report to icu nurse. al5 Vital Signs: 00:30 BP 229 / 88; Pulse 124; Resp 34; Pulse Ox 84% on 2 lpm NC; Weight 60.5 kg; vc1 01:07 BP 173 / 73; Pulse 102; Resp 25; Pulse Ox 100% on BiPAP; vc1 01:15 BP 170 / 76; Pulse 89; Resp 21; Pulse Ox 100% on BiPAP; al5 01:30 BP 165 / 62; Pulse 91; Resp 22; Pulse Ox 100% on BiPAP; al5 02:00 BP 164 / 64; Pulse 88; Resp 22; Pulse Ox 100% on BiPAP; al5 03:00 BP 163 / 60; Pulse 90; Resp 21; Pulse Ox 100% on 4 lpm NC; al5 04:00 BP 175 / 72; Pulse 97; Resp 21; Pulse Ox 100% on 4 lpm NC; al5 05:00 BP 172 / 62; Pulse 90; Resp 21; Pulse Ox 100% on 4 lpm NC; al5 ED Course: 00:35 Patient arrived in ED. kb 00:35 [facility] Lizarraga [facility]-C [facility] kb 00:35 Levon Mendez MD is Attending Physician. kb 01:02 Inserted saline lock: 20 gauge in right forearm, using aseptic technique. Blood vc1 collected. Flushed with 10 mL NS. 01:07 Triage completed. vc1 01:07 Lizzy Alvarez, RN is Primary Nurse. al5 01:08 No provider procedures requiring assistance completed. al5 01:08 Patient has correct armband on for positive identification. Bed in low position. Call al5 light in reach. Side rails up X2. Provided Education on: processes and procedures. 01:08 Arm band placed on right wrist. al5 01:15 Second set of blood cultures drawn by me. oe 01:16 BIPAP Sent. al5 01:16 ABG Sent. al5 01:18 Radiology exam delayed due to nurse starting IV. rs4 01:22 Inserted saline lock: 22 gauge in left wrist, using aseptic technique. Blood collected. oe Flushed with 10 mL NS. 01:34 Chest Single View XRAY In Process Unspecified. EDMS 02:50 CT Chest Abdomen Pelvis W/O Contrast In Process Unspecified. EDMS 05:17 Isaak Kelley MD is Hospitalizing Provider. sp4 05:47 Patient admitted, IV remains in place. al5 05:52 BNP Sent. al5 05:52 Troponin High Sensitivity Sent. al5 05:52 Urine Drug Screen Sent. al5 Administered Medications: 01:02 Drug: DuoNeb Nebulize (3:1) (2.5 mg - 0.5 mg) 3 ml Nebulizer once Route: Nebulizer; vc1 04:20 Follow up: Response: No adverse reaction; Wheezing diminished al5 01:02 Drug: Magnesium Sulfate IVPB 1 grams IVPB once over 1 hrs Route: IVPB; Infused Over: 1 vc1 hrs; Site: right forearm; 04:20 Follow up: Response: No adverse reaction; IV Status: Completed infusion al5 01:16 Drug: MethylPrednisoLONE IVP 125 mg IVP once Route: IVP; Site: right antecubital; al5 04:20 Follow up: Response: No adverse reaction; Wheezing diminished al5 02:40 Drug: NS 0.9% IV 1000 ml IV at 1 bolus Per protocol; 1000 mL bolus Route: IV; Rate: 1 al5 bolus; Site: right forearm; 02:40 Drug: Cefepime IVPB 1 grams IVPB at 200 ml/hr once over 30 mins; (mix in NS 100 mL) al5 Route: IVPB; Rate: 200 ml/hr; Infused Over: 30 mins; Site: right forearm; 04:19 Follow up: IV Status: Completed infusion; IV Intake: 100ml al5 04:20 Follow up: Response: No adverse reaction; IV Status: Completed infusion; IV Intake: al5 100ml 02:40 Drug: Sodium Bicarbonate IVP 2 amp IVP once; (50 mL); equals 50 mEq Route: IVP; Site: al5 right forearm; 04:19 Follow up: Response: No adverse reaction al5 02:40 Drug: NS 0.9% IV 1000 ml IV at 125 ml/hr continuous Route: IV; Rate: 125 ml/hr; Site: al5 left forearm; 02:40 Drug: NS 0.9% IV 1000 ml IV at 1 bolus Per protocol; 1000 mL bolus Route: IV; Rate: 1 al5 bolus; Site: right forearm; 04:18 Follow up: Response: No adverse reaction; IV Status: Completed infusion; IV Intake: al5 1000ml 05:20 Drug: vancoMYCIN IVPB 1 grams IVPB once over 2 hrs Route: IVPB; Infused Over: 2 hrs; al5 Site: left forearm; 05:52 Follow up: Response: No adverse reaction; IV Status: Infusion continued upon admission al5 06:20 Drug: Nicoderm CQ Transdermal Patch 21 mg/24 hr 21 mg Transdermal once Route: al5 Transdermal; Site: affected area; Medication: 01:09 VIS not applicable for this client. al5 Intake: 04:18 IV: 1000ml; Total: 1000ml. al5 04:19 IV: 100ml; Total: 1100ml. al5 04:20 IV: 100ml; Total: 1200ml. al5 Outcome: 05:19 Decision to Hospitalize by Provider. sp4 06:52 Admitted to ICU accompanied by nurse, accompanied by tech, room 3, with oxygen, on al5 monitor, with chart, 06:52 Condition: good 06:52 Instructed on the need for admit, 06:52 Patient left the ED. al5 Signatures: Dispatcher [employer] EDMS Lynn Lizarraga, BUSINESS LIAISON OFFICER-C BUSINESS LIAISON OFFICER-Ckb Stewart Lazaro Vanessa, RN RN Melanie Davis Sergey, MD MD sp4 Lizzy Alvarez RN RN al5
--- NOTE | 2024-02-10 05:19 | EDPHYS ---
Physician Documentation [facility] Name: Dez Shepard Sr Age: 78 yrs Sex: Male : 1945 Arrival Date: 02/10/2024 Time: 00:29 Bed 15 Private MD: ED Physician Levon Mendez HPI: 02/09 00:38 This 78 yrs old Male presents to ER via Unassigned with complaints of Shortness Of kb Breath. 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 Pt is on O2 at all times, normally at 2L. O2 sat on 3L was 83% upon arrival to ED. . Historical: - Allergies: 01:08 PENICILLINS; vc1 - PMHx: 01:08 Chronic obstructive lung disease; vc1 - PSHx: 01:08 None; vc1 - Immunization history:: Adult Immunizations up to date. - Infectious Disease History:: Denies. - Social history:: Smoking status: Patient reports the use of cigarette tobacco products, smokes one-half pack cigarettes per day. ROS: 00:36 Constitutional: As per HPI kb Exam: 00:36 Head/Face: Normocephalic, atraumatic. ENT: Moist Mucous membranes Abdomen/GI: Soft, kb non-tender. No distention Skin: Warm, dry with normal turgor. Normal color. MS/ Extremity: Pulses equal, no cyanosis. Neurovascular intact. Full, normal range of motion. Neuro: Awake and alert, GCS 15, oriented to person, place, time, and situation. Moves all extremities. 00:36 Constitutional: The patient appears alert, awake, in obvious distress, 00:36 Cardiovascular: Rate: tachycardic, 00:36 Respiratory: moderate respiratory distress is noted, Respirations: labored breathing, that is moderate, Breath sounds: wheezing: expiratory that is moderate, is heard diffusely, 05:19 Constitutional: This is a well developed, well nourished patient who is awake, alert, sp4 and in no acute distress. Head/Face: Normocephalic, atraumatic. Eyes: Pupils equal round and reactive to light, extra-ocular motions intact. Lids and lashes normal. Conjunctiva and sclera are not injected. Cornea within normal limits. Periorbital areas with no swelling, redness, or edema. ENT: Nares patent. No nasal discharge, no septal abnormalities noted. Tympanic membranes are normal and external auditory canals are clear. Oropharynx with no redness, swelling, or masses, exudates, or evidence of obstruction, uvula midline. Mucous membranes moist. Neck: Trachea midline, no thyromegaly or masses palpated, and no cervical lymphadenopathy. Supple, full range of motion without nuchal rigidity, or vertebral point tenderness. Chest/axilla: Normal chest wall appearance and motion. Nontender with no deformity. No lesions are appreciated. Cardiovascular: Regular rate and rhythm with a normal S1 and S2. No gallops, murmurs, or rubs. Normal PMI, no JVD. No pulse deficits. Respiratory: Lungs have equal breath sounds bilaterally, clear to auscultation and percussion. No rales, rhonchi or wheezes noted. No increased work of breathing, no retractions or nasal flaring. Abdomen/GI: Soft, with normal bowel sounds. No distension or tympany. No guarding or rebound. No evidence of tenderness throughout. Back: No spinal tenderness. No costovertebral tenderness. Skin: Warm, dry with normal turgor. Normal color with no rashes, no lesions, and no evidence of cellulitis. MS/ Extremity: Pulses equal, no cyanosis. Neurovascular intact. Full, normal range of motion. Neuro: Awake and alert, GCS 15, oriented to person, place, time, and situation. Cranial nerves II-XII grossly intact. Motor strength 5/5 in all extremities. Sensory grossly intact. Psych: Awake, alert, with orientation to person, place and time. Behavior, mood, and affect are within normal limits 05:19 ECG was reviewed by the Attending Physician. EKG at 005 normal sinus rhythm rate 93, left bundle branch block, ST depression lead to 3 aVF. Vital Signs: 00:30 BP 229 / 88; Pulse 124; Resp 34; Pulse Ox 84% on 2 lpm NC; Weight 60.5 kg; vc1 01:07 BP 173 / 73; Pulse 102; Resp 25; Pulse Ox 100% on BiPAP; vc1 01:15 BP 170 / 76; Pulse 89; Resp 21; Pulse Ox 100% on BiPAP; al5 01:30 BP 165 / 62; Pulse 91; Resp 22; Pulse Ox 100% on BiPAP; al5 02:00 BP 164 / 64; Pulse 88; Resp 22; Pulse Ox 100% on BiPAP; al5 03:00 BP 163 / 60; Pulse 90; Resp 21; Pulse Ox 100% on 4 lpm NC; al5 04:00 BP 175 / 72; Pulse 97; Resp 21; Pulse Ox 100% on 4 lpm NC; al5 05:00 BP 172 / 62; Pulse 90; Resp 21; Pulse Ox 100% on 4 lpm NC; al5 MDM: 00:35 Patient medically screened. kb 00:53 Data reviewed: vital signs, nurses notes. Historians other than the Patient: rolando Daughter/Son: son. Transition of care: After a detail discussion of the patient's case, care is transferred to Levon Mendez MD. 04:05 ED course: CLINICAL HISTORY: Dyspnea. COMPARISON: XR Chest 05/14/2022. TECHNIQUE: XR sp4 CHEST 1 VIEW 02/10/2024 12:36 AM CDT FINDINGS: The heart is borderline in size. Lungs are clear without consolidation, atelectasis, mass or edema. There are scattered bilateral pleural calcifications. There may be small pleural effusions. There is no pneumothorax. There are no acute osseous findings. IMPRESSION: No convincing pneumonia. Electronically signed by: Joaquin Gusman MD 02/10/2024 02:40 . 04:07 ED course: Sepsis reevaluation, patient is feeling better, hemodynamically stable.. sp4 04:46 ED course: CLINICAL HISTORY: Chest pain. COMPARISON: XR Chest 02/10/2024. TECHNIQUE: CT sp4 CHESTABDOMEN PELVIS WITHOUT IV CONTRAST on 02/10/2024 2:06 AM CDT This exam was performed according to our departmental dose-optimization program, which includes automated exposure control, adjustment of the mA and/or kV according to patient size and/or use of iterative reconstruction technique. FINDINGS: Chest: The heart is normal in size. There is no pericardial effusion. There are calcified central mesenteric lymph nodes measuring up to 1.5 cm. There are extensive mostly calcified bilateral pleural plaques. Central airways are patent. There is an irregular nodular opacity in the left upper lobe measuring 15 mm. There is moderate upper lung centrilobular emphysema. Abdomen: There are several small anterior hepatic cyst. There is no biliary dilatation. Gallbladder is normal in appearance. The pancreas and spleen are normal in appearance. Right adrenal adenoma measures 4.2 cm. Left adrenal gland is unremarkable. Kidneys are normal in size. There is nodular versus. Abdominal aorta is densely calcified without aneurysm. There is no free air. There is no retroperitoneal adenopathy. Pelvis: There is no bowel obstruction. Urinary bladder is unremarkable. There is no free fluid. Appendix is normal. Skeleton: There are no acute osseous findings. No suspicious bony lesions. IMPRESSION: Extensive calcified pleural plaques. Suspicious left solid pulmonary nodule within the upper lobe measuring 15 mm. Per Fleischner Society Guidelines, consider a noncontrast Chest CT at 3 months, a PET/CT, or tissue sampling. These guidelines do not apply to immunocompromised patients and patients with cancer. Follow up in patients with significant comorbidities as clinically warranted. For lung cancer screening, adhere to Lung-RADS guidelines. Reference: Radiology. 2017; 284(1):228-43. No definite acute inflammatory process in the abdomen or pelvis. . 04:59 ED course: Sepsis reevaluation complete. Patient awaiting on troponin.. sp4 02/09 00:36 Order name: Blood Culture Adult (2) kb 02/09 00:36 Order name: CBC with Diff; Complete Time: 01:59 kb 02/09 00:36 Order name: CMP; Complete Time: 01:59 kb 02/09 00:36 Order name: Lactate w/ 2H reflex if indic.; Complete Time: 01:59 kb 02/09 00:36 Order name: Protime (+inr); Complete Time: 02:06 kb 02/09 00:36 Order name: Ptt, Activated; Complete Time: 02:06 kb 02/09 00:36 Order name: ABG kb 02/09 01:00 Order name: Glucose, Ancillary Testing; Complete Time: 01:59 EDMS 15 02:06 Order name: Urine Drug Screen; Complete Time: 06:37 sp4 02/09 02:07 Order name: Urinalysis w/ reflexes; Complete Time: 06:37 sp4 02/09 03:57 Order name: Ghost Lactate-NO COLLECT Timer; Complete Time: 04:05 EDMS 02/09 04:59 Order name: Troponin High Sensitivity; Complete Time: 06:37 sp4 02/09 04:59 Order name: BNP; Complete Time: 06:37 sp4 02/09 00:36 Order name: Chest Single View XRAY kb 02/09 00:36 Order name: BIPAP kb 02/09 02:06 Order name: CT Chest Abdomen Pelvis W/O Contrast sp4 02/09 00:36 Order name: EKG; Complete Time: 00:37 kb 02/09 04:59 Order name: CONS Physician Consult EDMS 02/09 00:36 Order name: Accucheck; Complete Time: 01:02 kb 02/09 00:36 Order name: Cardiac monitoring; Complete Time: 01:16 kb 02/09 00:36 Order name: EKG - Nurse/Tech; Complete Time: : kb 02/09 00:36 Order name: IV Saline Lock - Large Bore; Complete Time: 01:02 kb 02/09 00:36 Order name: Labs collected and sent; Complete Time: 01:02 kb 02/09 00:36 Order name: O2 Per Protocol; Complete Time: 01:02 kb 02/09 00:36 Order name: O2 Sat Monitoring; Complete Time: 01: kb 02/09 00:36 Order name: Vital Signs; Complete Time: 01:16 kb EC:19 Rate is 93 beats/min. Rhythm is regular, Sinus Rhythm. QRS [place] is Normal. [place] interval sp4 is normal. QRS interval is prolonged. ST Segment is depressed in leads II, III, aVF. Interpreted by me. Reviewed by me. Administered Medications: 01:02 Drug: DuoNeb Nebulize (3:1) (2.5 mg - 0.5 mg) 3 ml Nebulizer once Route: Nebulizer; vc1 04:20 Follow up: Response: No adverse reaction; Wheezing diminished al5 01:02 Drug: Magnesium Sulfate IVPB 1 grams IVPB once over 1 hrs Route: IVPB; Infused Over: 1 vc1 hrs; Site: right forearm; 04:20 Follow up: Response: No adverse reaction; IV Status: Completed infusion al5 01:16 Drug: MethylPrednisoLONE IVP 125 mg IVP once Route: IVP; Site: right antecubital; al5 04:20 Follow up: Response: No adverse reaction; Wheezing diminished al5 02:40 Drug: NS 0.9% IV 1000 ml IV at 1 bolus Per protocol; 1000 mL bolus Route: IV; Rate: 1 al5 bolus; Site: right forearm; 02:40 Drug: Cefepime IVPB 1 grams IVPB at 200 ml/hr once over 30 mins; (mix in NS 100 mL) al5 Route: IVPB; Rate: 200 ml/hr; Infused Over: 30 mins; Site: right forearm; 04:19 Follow up: IV Status: Completed infusion; IV Intake: 100ml al5 04:20 Follow up: Response: No adverse reaction; IV Status: Completed infusion; IV Intake: al5 100ml 02:40 Drug: Sodium Bicarbonate IVP 2 amp IVP once; (50 mL); equals 50 mEq Route: IVP; Site: al5 right forearm; 04:19 Follow up: Response: No adverse reaction al5 02:40 Drug: NS 0.9% IV 1000 ml IV at 125 ml/hr continuous Route: IV; Rate: 125 ml/hr; Site: al5 left forearm; 02:40 Drug: NS 0.9% IV 1000 ml IV at 1 bolus Per protocol; 1000 mL bolus Route: IV; Rate: 1 al5 bolus; Site: right forearm; 04:18 Follow up: Response: No adverse reaction; IV Status: Completed infusion; IV Intake: al5 1000ml 05:20 Drug: vancoMYCIN IVPB 1 grams IVPB once over 2 hrs Route: IVPB; Infused Over: 2 hrs; al5 Site: left forearm; 05:52 Follow up: Response: No adverse reaction; IV Status: Infusion continued upon admission al5 06:20 Drug: Nicoderm CQ Transdermal Patch 21 mg/24 hr 21 mg Transdermal once Route: al5 Transdermal; Site: affected area; Disposition: 04:59 Critical Care:. Co-signature as Attending Physician, Levon Mendez MD I agree with sp4 the assessment and plan of care. I reviewed the patient's care provided by Advanced Practice Provider \T\ agree w/ the diagnosis \T\ care plan. I personally saw the pt \T\ performed a substantive portion of the visit, incldng all aspects of the (History/Exam/Medical Decision Making). Disposition Summary: 02/10/24 05:19 Hospitalization Ordered Notes: Hospitalization Status: Inpatient Admission sp4 Provider: Isaak Kelley sp4 Condition: Stable sp4 Problem: new sp4 Symptoms: have improved sp4 Bed/Room Type: Standard sp4 Location: Intensive Care Unit(08/15/24 05:22) oe Room Assignment: 3-(02/10/24 05:22) oe Diagnosis - Severe sepsis without septic shock sp4 - Chest pain on breathing sp4 - COPD/ Chronic obstructive pulmonary disease with (acute) exacerbation sp4 - Asbestosis, calcified pleural plaques, left lung pulmonary nodule sp4 - Elevated Troponin sp4 Forms: - Medication Reconciliation Form sp4 - SBAR form sp4 - Leadership Thank You Letter sp4 Critical care time excluding procedures: 04:59 Critical care time: Bedside Care: 36 minutes, Consultation: 12 minutes, Family sp4 Intervention: 12 minutes. Total time: 60 minutes Signatures: Dispatcher [employer] EDMS Lynn Lizarraga FNP-C WATCH REPAIR PERSON-Stewart Rutherford oe Bibiana Vargas, RN RN vc1 Levon Mendez MD MD sp4 Lizzy Alvarez RN RN al5 Corrections: (The following items were deleted from the chart) 00:37 00:37 BLOOD CULTURE*+BA.LAB.BRZ ordered. EDMS EDMS 00:37 00:37 CBC+H.LAB.BRZ ordered. EDMS EDMS 00:37 00:37 COMPREHENSIVE METABOLIC PANEL+C.LAB.BRZ ordered. EDMS EDMS 00:37 00:37 LACTATE+C.LAB.BRZ ordered. EDMS EDMS 00:37 00:37 PROTIME (+INR)+COAG.LAB.BRZ ordered. EDMS EDMS 00:37 00:37 PTT, ACTIVATED+COAG.LAB.BRZ ordered. EDMS EDMS 05:17 05:17 Acute Hepatitis Panel+SC.LAB.BRZ ordered. EDMS EDMS 05:17 05:17 SARS-COV-2 Antigen Rapid+I.LAB.BRZ ordered. EDMS EDMS 05:17 05:17 Influenza Screen (A \T\ B)+BA.LAB.BRZ ordered. EDMS EDMS 05:22 05:19 Telemetry/MedSurg (Inpatient) sp4 oe 05:22 05:19 sp4 oe
[2024-02-10 05:50] LABS: Specific Gravity 1.019 (1.005-1.030); Sqamous Epithelial None Seen /HPF (None Seen); Urine Bacteria <20 /HPF (<20); Urine Bilirubin NEGATIVE (Negative); Urine Blood Negative (Negative); Urine Clarity Clear (Clear); Urine Color Light-Yellow (Yellow); Urine Culture Reflex Order NOT NEEDED; Urine Glucose 1+ (Negative); Urine Ketones NEGATIVE (Negative); Urine Microscopic Reflex YN ORDER UMIC; Urine Mucus Slight /HPF (None Seen); Urine Nitrite NEGATIVE (Negative); Urine Protein 2+ (Negative); Urine RBC <5 /HPF (None Seen); Urine Urobilinogen Normal (Normal); Urine WBC <5 /HPF (<5); Urine pH 6.5 (5.0-7.0)
[2024-02-10 06:02] LABS: Barbiturates NEGATIVE (NEGATIVE); Benzodiazepines NEGATIVE (NEGATIVE); Cocaine NEGATIVE (NEGATIVE); METHAMPHETAM NEGATIVE (NEGATIVE); Methadone NEGATIVE (NEGATIVE); Opiates NEGATIVE (NEGATIVE); Phencyclidine NEGATIVE (NEGATIVE); THC Cannibis NEGATIVE (NEGATIVE)
[2024-02-10] MEDS ORDERED: NICOTINE 21 MG/PAT TD ONE (06:13)
[2024-02-10 06:32] LABS: Troponin High Sensitivity 1337.9 pg/mL (<58.9)
--- NOTE | 2024-02-10 06:54 | P.PN ---
Date of Service: 02/10/24 Subjective Expiratory wheezes, O2 at 4 L, shortness of breath with Review of Systems 10-point ROS is otherwise unremarkable Physical Examination - Vital Signs Reviewed - Physical Exam General: Alert, Oriented x3, Mild distress HEENT: Atraumatic, Normocephalic Neck: 2+ carotid pulse no bruit, JVD not distended Respiratory: Normal air movement, Expiratory wheezes, Inspiratory wheezes Cardiovascular: Normal pulses, Regular rate/rhythm Capillary refill: <2 Seconds Gastrointestinal: Normal bowel sounds, Soft and benign Musculoskeletal: No clubbing, No swelling Neurological: Normal speech, Normal strength at 5/5 x4 extr, Other (Orthopneic with speech) - Assessment and Plan - Plan Assessment plan Acute hypoxic respiratory failure secondary to COPD exacerbation Lactic acidosis sepsis without shock chest pain with inspiration asbestos calcified pleural plaques Pulmonary nodule Dr. Zambrano consulted, BiPAP ordered,repeat ABG, Lactic ordered plan to admit to ICU on telemetry, nephrology eval for bicarb drip on lactic acid, pulmonology consult Duo nebs, IV antibiotics, steroids, BiPAP, possible bicarb drip 78-year-old male with a past medical history of COPD, asbestos, presents to the emergency room with shortness of breath. He reports wheezing for the last 3 to 4 days. He reports symptoms worse over the last hour. He reports use of home O2 at 2 L at baseline on arrival to the emergency room is 83% on 2 L he reports smoking history of 3 packs a day, currently smoking 1 pack a day, requesting to vape, pulmonary nodule, ER physician discussed results with patient and family at bedside. hypertensive urgency, BP 229 / 88; Pulse 124; Resp 34; Pulse Ox 84% on 2 lpm NC, Lactic acidosis 8, 2 A of bicarb given, cefepime 1 g, Solu-Medrol, magnesium, given, sepsis IV fluids given, CT of the chest e calcified central mesenteric lymph nodes measuring up to 1.5 cm. There are extensive mostly calcified bilateral pleural plaques. Central airways are patent. There is an irregular nodular opacity in the left upper lobe measuring 15 mm. There is moderate upper lung centrilobular emphysema. Abdomen: There are several small anterior hepatic cyst. There is no biliary dilatation. Gallbladder is normal in appearance. The pancreas and spleen are normal in appearance. Right adrenal adenoma measures 4.2 cm. Left adrenal gland is unremarkable. Kidneys are normal in size. There is nodular versus. Abdominal aorta is densely calcified without aneurysm. There is no free air. There is no retroperitoneal adenopathy. Pelvis: There is no bowel obstruction. Urinary bladder is unremarkable. There is no free fluid. Extensive calcified pleural plaques. Suspicious left solid pulmonary nodule within the upper lobe measuring 15 mm. Per Fleischner Society Guidelines, consider a noncontrast Chest CT at 3 months, a PET/CT, or tissue sampling. These guidelines do not apply to immunocompromised patients and patients with cancer. Follow up in patients with significant comorbidities as clinically warranted. For lung cancer screening, adhere to Lung-RADS guidelines. ER physician went over pulmonary nodule screening with patient and family at bedside. Hypertensive urgency As needed antihypertensive Telemetry Full code DVT heparin Diet clear liquid advance as tolerated Disposition Home with home O2 Discharge Plan: Home - Advance Directives Does patient have a Living Will: No Does patient have a Durable POA for Healthcare: No - Code Status/Comfort Care Code Status: Full Code Critical Care: Yes Time Spent Managing Pts Care (In Minutes): 35
[2024-02-10 07:05] LABS: SARS-CoV-2 Antigen CONTROL BLUE LINE VIS/BG OK; SARS-CoV-2 Antigen Rapid Res Negative (Negative)
[2024-02-10 07:44] LABS: HBsAG Nonreactive Report Report; Hepatitis B Core IgM Nonreactive (Nonreactive); Hepatitis B surface AG Interp. Nonreactive (Nonreactive); Hepatitis C Virus Ab Nonreactive (Nonreactive)
[2024-02-10] MEDS ORDERED: ALBUTEROL 2.5 MG/3 ML NEB SOL NEB PRN ×2 (08:01→14:03)
[2024-02-10] MEDS ORDERED: IPRATROPIUM BROM 0.5MG/2.5ML NEB PRN (08:01)
[2024-02-10] MEDS ORDERED: ONDANSETRON 4 MG/2 ML VIAL IV PRN (08:01)
[2024-02-10] MEDS ORDERED: ALPRAZOLAM 0.25 MG TABLET PO PRN (08:01)
[2024-02-10 08:35] LABS: Anion Gap 5.8 mEq/L (5.0-15.0); Potassium 4.8 mEq/L (3.5-5.1)
[2024-02-10] MEDS: ASPIRIN EC 81 MG TAB PO SCH (09:00)
[2024-02-10] MEDS ORDERED: lisinopriL 20 MG TAB PO SCH (09:00)
[2024-02-10] MEDS ORDERED: SPIRONOLACTONE 25 MG TABLET PO SCH (09:00)
[2024-02-10] MEDS ORDERED: Levofloxacin 750mg IV 750 MG/150 ML BAG IV SCH (09:00)
[2024-02-10] MEDS ORDERED: predniSONE 20 MG TAB PO SCH (09:00)
[2024-02-10] MEDS: ALPRAZOLAM 0.5 MG TABLET PO SCH (09:49)
[2024-02-10] MEDS: CEFEPIME 1 GM in NA CHLORIDE 0.9% 100 ML IV SCH (09:49)
[2024-02-10] MEDS: NICOTINE 14 MG/PAT TD SCH (09:49)
[2024-02-10] MEDS: VANCOMYCIN 1.5 GM in NA CHLORIDE 0.9% 500 ML IVPB SCH (09:59)
--- NOTE | 2024-02-10 09:59 | P.PN ---
Date of Service: 02/10/24 Subjective: Saw pt upon transfer to ICU. A&Ox3. Sitting at bedside. Denies CP - states he hasn't needed his nitro in 3 months. O2 @4L via N/C sats between 94-98%. Dr. Coleman rounding and saw pt. Review of Systems 10-point ROS is otherwise unremarkable Physical Examination - Vital Signs reviewed - Physical Exam General: Alert, Oriented x3, Mild distress HEENT: Atraumatic, Normocephalic Neck: 2+ carotid pulse no bruit, JVD not distended Respiratory: Normal air movement, Expiratory wheezes, Inspiratory wheezes Cardiovascular: Normal pulses, Regular rate/rhythm Capillary refill: <2 Seconds Gastrointestinal: Normal bowel sounds, Soft and benign Musculoskeletal: No clubbing, No swelling Neurological: Normal speech, Normal strength at 5/5 x4 extr, Other (Orthopneic with speech) - Studies Laboratory Data (last 24 hrs) 02/10/24 02/10/24 02/10/24 01:32 00:51 00:51 WBC 16.50 H Hgb 11.1 L Hct 34.9 L Plt Count 469 H PT 11.2 INR 1.00 APTT 30.1 Sodium 136 Potassium 4.5 BUN 20 H Creatinine 1.44 H Glucose 317 H Total Bilirubin 0.3 AST 164 H ALT 105 H Alkaline Phosphatase 111 Assessment and Plan - Plan Assessment plan Acute hypoxic respiratory failure secondary to COPD exacerbation Lactic acidosis sepsis without shock chest pain with inspiration asbestos calcified pleural plaques Pulmonary nodule Dr. Zambrano consulted, BiPAP ordered,repeat ABG, Lactic ordered plan to admit to ICU on telemetry, nephrology eval for bicarb drip on lactic acid, pulmonology consult Duo nebs, IV antibiotics, steroids, BiPAP, possible bicarb drip 78-year-old male with a past medical history of COPD, asbestos, presents to the emergency room with shortness of breath. He reports wheezing for the last 3 to 4 days. He reports symptoms worse over the last hour. He reports use of home O2 at 2 L at baseline on arrival to the emergency room is 83% on 2 L he reports smoking history of 3 packs a day, currently smoking 1 pack a day, requesting to vape, pulmonary nodule, ER physician discussed results with patient and family at bedside. hypertensive urgency, BP 229 / 88; Pulse 124; Resp 34; Pulse Ox 84% on 2 lpm NC, Lactic acidosis 8, 2 A of bicarb given, cefepime 1 g, Solu-Medrol, magnesium, given, sepsis IV fluids given, CT of the chest e calcified central mesenteric lymph nodes measuring up to 1.5 cm. There are extensive mostly calcified bilateral pleural plaques. Central airways are patent. There is an irregular nodular opacity in the left upper lobe measuring 15 mm. There is moderate upper lung centrilobular emphysema. Abdomen: There are several small anterior hepatic cyst. There is no biliary dilatation. Gallbladder is normal in appearance. The pancreas and spleen are normal in appearance. Right adrenal adenoma measures 4.2 cm. Left adrenal gland is unremarkable. Kidneys are normal in size. There is nodular versus. Abdominal aorta is densely calcified without aneurysm. There is no free air. There is no retroperitoneal adenopathy. Pelvis: There is no bowel obstruction. Urinary bladder is unremarkable. There is no free fluid. Extensive calcified pleural plaques. Suspicious left solid pulmonary nodule within the upper lobe measuring 15 mm. Per Fleischner Society Guidelines, consider a noncontrast Chest CT at 3 months, a PET/CT, or tissue sampling. These guidelines do not apply to immunocompromised patients and patients with cancer. Follow up in patients with significant comorbidities as clinically warranted. For lung cancer screening, adhere to Lung-RADS guidelines. ER physician went over pulmonary nodule screening with patient and family at bedside. Hypertensive urgency As needed antihypertensive Telemetry NSTEMI Consult cardiology manage HTN urgency aggressively Full code DVT heparin Diet clear liquid advance as tolerated Disposition Home with home O2 Discharge Plan: Home - Advance Directives Does patient have a Living Will: No Does patient have a Durable POA for Healthcare: No - Code Status/Comfort Care Code Status: Full Code <Etta Cordero - Last Filed: 02/10/24 09:50> Pt seen and examined. I agree with the note by the RUBBER MOLDER. Continue steroid, abx, duoneb, 4L BNC and prn BIPAP. Pt uses 2L at home. Waiting for Cardiology eval. Continue heparin for NSTEMI. Will f/u Echo <Edda Hanson - Last Filed: 02/10/24 11:57>
[2024-02-10] MEDS: LOSARTAN/HCTZ 50-12.5 PO SCH (10:02)
[2024-02-10] MEDS: NA CHLORIDE 0.9% 500 ML IV ONE (11:08)
[2024-02-10] MEDS: METHYLPREDNISOLONE 125 MG INJ IV SCH (11:08)
[2024-02-10] MEDS ORDERED: INSULIN REGULAR (HUMAN) 100 UNIT/ML SQ SCH (11:30)
[2024-02-10] MEDS ORDERED: HEPARIN/D5W 25,000 UNIT/500 ML BAG IV PRN (11:40)
[2024-02-10] MEDS ORDERED: HEPARIN 5000 UNIT/ML 1 ML VIAL IV PRN (11:46)
[2024-02-10] MEDS ORDERED: HEPARIN/D5W 25,000 UNIT/500 ML BAG IV SCH (12:00)
[2024-02-10] MEDS: Levofloxacin500mg IV 500 MG/100 ML BAG IV SCH (12:00)
[2024-02-10 12:04] LABS: Arterial Blood Carboxyhemoglob 1.2 % (0-1.5); Blood Gas Oxyhemoglobin 94.9 % (94-97); Blood O2 Saturation 97.4 % (92-98.5)
[2024-02-10 12:05] LABS: Blood Gas THB 9.7 g/dl (12-18)
[2024-02-10 12:07] LABS: Absolute Basophils 0.1 K/uL (0-0.5); Absolute Monocytes 0.9 K/uL (0.1-1.3); Absolute Neutrophil 9.2 K/uL (1.8-8.0); Basophils % 0.5 % (0-1.3); Hemoglobin 9.6 g/dL (13.6-17.9); Lymphocytes % 9.1 % (15.3-44.8); MCH 28.6 pg (27.0-35.0); MCHC 32.2 g/dL (32.0-36.0); MPV 8.2 fL (7.6-11.3); Monocytes % 7.9 % (3.3-12.3); Neutrophils % 82.5 % (41.7-73.7); Platelets 433 thou/uL (152-406); RBC Red Blood Cell Count 3.37 M/uL (4.33-5.43); Red Cell Distribution Width 15.3 % (12.1-15.2)
[2024-02-10 12:13] LABS: PT Prothrombin Time 11.7 SECONDS (9.4-12.5); PTT, Activated Partial Thromb 32.3 SECONDS (24.3-36.9); Protime INR 1.05
--- NOTE | 2024-02-10 12:32 | P.CNS ---
Date of Consult: 02/10/24 Reason for Consult: COPD exacerbation non-STEMI abnormal CT scan Chief Complaint: Hypoxic respiratory failure History of Present Illness: Patient is 78 years of age with a history of COPD continues to smoke heavily admitted with worsening dyspnea for the past 4 days chest cough congestion patient was taking his bronchodilators at home was found to be hypoxic and with his nebulizer CT scan abnormal with a left upper lobe possible solitary pulmonary nodule associated with scarring appears to have a non-STEMI Allergies Penicillins Allergy (Verified 02/10/24 06:20) Anaphylaxis - Past Medical/Surgical History -: COPD -: L) Pulmonary nodule -: Pleural effusion -: Bilateral pleural calcifications, -: Hepatic cyst -: Asbestosis -: Hypertension - Social History Smoking Status: Current every day smoker Alcohol use: Yes Caffeine use: Yes Review of Systems General: Weakness Respiratory: Cough, Shortness of Breath Physical Examination Temp Pulse Resp BP Pulse Ox 83 21 H 147/48 H 100 02/10/24 10:02 02/10/24 07:38 02/10/24 10:02 02/10/24 06:18 General: Alert, In no apparent distress, Oriented x3 Respiratory: Expiratory wheezes Cardiovascular: No edema, Regular rate/rhythm, Normal S1 S2 Gastrointestinal: Normal bowel sounds, Soft and benign Laboratory Data (last 24 hrs) 02/10/24 02/10/24 02/10/24 01:32 00:51 00:51 WBC 16.50 H Hgb 11.1 L Hct 34.9 L Plt Count 469 H PT 11.2 INR 1.00 APTT 30.1 Sodium 136 Potassium 4.5 BUN 20 H Creatinine 1.44 H Glucose 317 H Total Bilirubin 0.3 AST 164 H ALT 105 H Alkaline Phosphatase 111 - Problems (1) COPD exacerbation Current Visit: Yes Status: Acute Plan: Patient is 78 years of age with a history admitted with COPD exacerbation heavy smoker he does use an and an inhaler at home treated with bronchodilators steroids cultures levofloxacin patient is taking Trelegy and albuterol at home as per home medication list cardiac evaluation for non-STEMI on heparin and asp irin (2) Abnormal CT scan of lung Current Visit: Yes Status: Acute Plan: Patient has an abnormal CT scan he has classic findings of asbestosis however in the left upper lobe there may be a solitary pulmonary nodule associated with scarring which needs to be followed up with repeat CAT scan and evaluate his previous CAT scans
--- NOTE | 2024-02-10 12:37 | RAD REPORT ---
EXAM DESCRIPTION: CT - Chest Abd Pelvis Wo Con - 02/10/2024 2:49 am CLINICAL HISTORY: Chest pain. COMPARISON: XR Chest 02/10/2024. TECHNIQUE: CT CHEST ABDOMEN PELVIS WITHOUT IV CONTRAST on 02/10/2024 2:06 AM CDT This exam was performed according to our departmental dose-optimization program, which includes autom ated exposure control, adjustment of the mA and/or kV according to patient size and/or use of iterati ve reconstruction technique. FINDINGS: Chest: The heart is normal in size. There is no pericardial effusion. There are calcified central mesenteric lymph nodes measuring up to 1.5 cm. There are extensive mostly calcified bilateral pleural plaques. Central airways are patent. There is an irregular nodular opacity in the left upper lobe measuring 15 mm. There is moderate upper lung ivone trilobular emphysema. Abdomen: There are several small anterior hepatic cyst. There is no biliary dilatation. Gallbladder i s normal in appearance. The pancreas and spleen are normal in appearance. Right adrenal adenoma measu res 4.2 cm. Left adrenal gland is unremarkable. Kidneys are normal in size. There is nodular versus. Abdominal aorta is densely calcified without aneurysm. There is no free air. There is no retroperiton eal adenopathy. Pelvis: There is no bowel obstruction. Urinary bladder is unremarkable. There is no free fluid. Appen elie is normal. Skeleton: There are no acute osseous findings. No suspicious bony lesions. IMPRESSION: Extensive calcified pleural plaques. Suspicious left solid pulmonary nodule within the upper lobe measuring 15 mm. Per Fleischner Society Guidelines, consider a non-contrast Chest CT at 3 months, a PET/CT, or tissue sampling. These guidelines do not apply to immunocompromised patients and patients with cancer. Follow up in pa tients with significant comorbidities as clinically warranted. For lung cancer screening, adhere to L k[place]all-RADS guidelines. Reference: Radiology. 2017; 284(1):228-43. No definite acute inflammatory process in the abdomen or pelvis. Electronically signed by: Joaquin Gusman MD 02/10/2024 04:07 AM CDT Due to temporary technical issues with the PACS/Fluency reporting system, reports are being signed by the in house radiologist without review as a courtesy to ensure prompt reporting. The interpreting r adiologist is fully responsible for the content of the report.
--- NOTE | 2024-02-10 12:53 | P.CNS ---
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 Allergies Penicillins Allergy (Verified 02/10/24 06:20) Anaphylaxis Home medications list reviewed: Yes - Past Medical/Surgical History -: COPD -: L) Pulmonary nodule -: Pleural effusion -: Bilateral pleural calcifications, -: Hepatic cyst -: Asbestosis -: Hypertension - Social History Smoking Status: Current every day smoker Alcohol use: Yes Caffeine use: Yes Review of Systems 10-point ROS is otherwise unremarkable Physical Examination Temp Pulse Resp BP Pulse Ox 83 21 H 147/48 H 100 02/10/24 10:02 02/10/24 07:38 02/10/24 10:02 02/10/24 06:18 General: Alert, In no apparent distress HEENT: Atraumatic, PERRLA, Mucous membr. moist/pink, EOMI, Sclerae nonicteric Neck: Supple, 2+ carotid pulse no bruit, No LAD, Without JVD or thyroid abnormality Respiratory: Clear to auscultation bilaterally, Normal air movement Cardiovascular: Regular rate/rhythm, Normal S1 S2 Gastrointestinal: Normal bowel sounds, No tenderness Musculoskeletal: No tenderness Integumentary: No rashes Neurological: Normal gait, Normal speech, Normal tone, Normal affect Lymphatics: No axilla or inguinal lymphadenopathy Laboratory Data (last 24 hrs) 02/10/24 02/10/24 02/10/24 01:32 00:51 00:51 WBC 16.50 H Hgb 11.1 L Hct 34.9 L Plt Count 469 H PT 11.2 INR 1.00 APTT 30.1 Sodium 136 Potassium 4.5 BUN 20 H Creatinine 1.44 H Glucose 317 H Total Bilirubin 0.3 AST 164 H ALT 105 H Alkaline Phosphatase 111 - Problems (1) NSTEMI (non-ST elevated myocardial infarction) Current Visit: Yes Status: Acute Plan: Troponin is significant elevated with EKG changes, plan of coronary angiogram Heparin drip ASA 81 mg daily Lipitor 80 mg daily get echo. (2) Elevated brain natriuretic peptide (BNP) level Current Visit: Yes Status: Acute Plan: start diuresis with IV Lasix 40 mg BID get echo monitor input and output and electrolytes (3) HTN (hypertension) Current Visit: Yes Status: Acute Plan: start Coreg 6.25 mg po BID
[2024-02-10] MEDS: NA CHLORIDE 0.9% 1,000 ML IV SCH (13:05)
[2024-02-10] MEDS: IPRATROPIUM BROM 0.5MG/2.5ML NEB SCH (13:47)
--- NOTE | 2024-02-10 14:20 | RAD REPORT ---
EXAM DESCRIPTION: RAD - Chest Single View - 02/10/2024 2:10 pm CLINICAL HISTORY: PICC line placement COMPARISON: Chest Single View dated 02/10/2024; Chest Pa And Lat (2 Views) dated 05/05/2021 FINDINGS: Portable chest was obtained following placement of a left upper extremity PICC line. The c atheter tip projects over the SVC.
--- NOTE | 2024-02-10 14:23 | RAD REPORT ---
EXAM DESCRIPTION: RAD - Chest Single View - 02/10/2024 1:33 am CLINICAL HISTORY: Dyspnea. COMPARISON: XR Chest 05/14/2022. TECHNIQUE: XR CHEST 1 VIEW 02/10/2024 12:36 AM CDT FINDINGS: The heart is borderline in size. Lungs are clear without consolidation, atelectasis, mass or edema. There are scattered bilateral pleural calcifications. There may be small pleural effusions. There is no pneumothorax. There are no acute osseous findings. IMPRESSION: No convincing pneumonia. Electronically signed by: Joaquin Gusman MD 02/10/2024 02:40 AM CDT RP Due to temporary technical issues with the PACS/Fluency reporting system, reports are being signed by the in house radiologist without review as a courtesy to ensure prompt reporting. The interpreting r adiologist is fully responsible for the content of the report.
[2024-02-10 14:51] VITALS: BMI 22.1
[2024-02-10] MEDS ORDERED: HEPA 1000U/500MLS 2,000 UNIT/1,000 ML BAG IV ONE (15:11)
[2024-02-10] MEDS ORDERED: LIDOCAINE 1% 20 ML MDV ONE (15:11)
[2024-02-10] MEDS ORDERED: HEPARIN 5000 UNIT/ML 1 ML VIAL ONE (15:12)
[2024-02-10] MEDS ORDERED: HEPARIN 10,000 UNIT/10 ML VIAL IV ONE (15:12)
[2024-02-10] MEDS ORDERED: FENTANYL CITR 100 MCG/2 ML ONE (15:12)
[2024-02-10] MEDS ORDERED: TICAGRELOR 90 MG TABLET PO ONE (15:12)
[2024-02-10] MEDS ORDERED: MIDAZOLAM HCL 2 MG/2 ML INJ ONE (15:12)
[2024-02-10] MEDS ORDERED: ATROPINE SULF 1 MG/10 ML SYR IV ONE (15:12)
[2024-02-10] MEDS ORDERED: ASPIRIN 325 MG TAB ONE (15:13)
[2024-02-10] MEDS ORDERED: CLOPIDOGREL 75 MG TABLET ONE (15:13)
[2024-02-10] MEDS ORDERED: NITROGLYCERIN/D5W 50 MG/250 ML BTL IV ONE (15:16)
--- NOTE | 2024-02-10 16:24 | EKG ---
Test Date: 2024-02-10 Test Time: 07:51:57 Protohistorian: YOSELIN MEASUREMENT RESULTS: Intervals: Rate: 81 DC: 168 QRSD: 136 QT: 416 QTc: 483 Rice: P: 89 DC: 168 QRS: -53 T: 108 INTERPRETIVE STATEMENTS: Normal sinus rhythm Left axis deviation Nonspecific intraventricular block Possible Anterolateral infarct, age undetermined Abnormal ECG Compared to ECG 03/14/1996 05:26:00 Left-axis deviation now present Myocardial infarct finding now present Sinus arrhythmia no longer present Left bundle-branch block no longer present Electronically Signed On 02-10-24 16:23:34 CDT by Eddie Sadler
[2024-02-10] MEDS: FUROSEMIDE 40 MG/4 ML VIAL IV SCH (17:05)
--- NOTE | 2024-02-10 17:11 | CON ---
Date of Consultation: 02/10/2024 Consulting Physician: ICU. Reason For Consultation: Electrolyte imbalance, acidosis. History Of Present Illness: This is a pleasant 78-year-old gentleman with significant past medical h istory of COPD, oxygen dependent, asbestosis, the patient came to the hospital with shortness of mamie th, found to have acidosis for that reason, we have been consulted. The patient also found to have l actic acidosis. The patient denied taking any nonsteroidal. Denied abdominal pain. Blood pressure was stable. Past Medical History: 1.COPD. 2.Pulmonary nodules. 3.Pleural effusion. Past Surgical History: None contribute. Social History: Active smoker. Active alcohol. Denied drugs abuse. Review of Systems: Head and Neck: No red eye. No ear pain. GI: No nausea, no vomiting. No abdominal pain. : No polyuria, no dysuria, no hematuria. 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 Respiratory: Has shortness of breath, has cough. Cardiovascular: No chest pain. Endocrine: No polydipsia. Skin: No rash. Neuro: Weakness. Musculoskeletal: Generalized fatigue. Physical Examination: Vital Signs: Blood pressure 147/48, pulse of 83, afebrile. Chest: Wheezing bilateral more prominent on the left side. Heart: S1, S2. Tachycardic. Could not appreciate any murmur. Abdomen: Soft, nontender. Extremity: No edema. Neurologic: Alert, no focality. Laboratory Data: WBC 11.1, hemoglobin 9.6. Sodium 136, potassium 4.8, bicarb 31, BUN 18, creatinine 0.9, calcium 8.5, magnesium of 2. Troponin 3645. BNP 5011. ABG pH 7.25, CO2 of 55, O2 of 23, base access -3. Repeated lab pH 7.3, CO2 of 50, O2 of 98, saturation 93. Urinalysis negative for infect ion. Assessment And Plan: 1.Acidosis secondary to hypercapnic respiratory acidosis and lactic acidosis secondary to hypoxemia secondary to the chronic obstructive pulmonary disease. I do not see any need for further bicarb. W e will continue to monitor. I going to start the patient on normal saline. 2.Adrenal adenoma, non symptomatic. No further workup needed for the time being. 3.Hypertension, controlled, optimal with a history of chronic obstructive pulmonary disease. I am g oing to start the patient on calcium channel elijah. MA/MODL Voice ID: [id number] Report ID: [id number]
[2024-02-10] MEDS ORDERED: METOPROLOL TAR 25 MG TAB PO SCH (18:00)
[2024-02-10 20:05] LABS: Specific Gravity 1.026 (1.005-1.030); Sqamous Epithelial None Seen /HPF (None Seen); Urine Bacteria <20 /HPF (<20); Urine Bilirubin NEGATIVE (Negative); Urine Blood Negative (Negative); Urine Clarity Clear (Clear); Urine Color Light-Yellow (Yellow); Urine Culture Reflex Order NOT NEEDED; Urine Glucose TRACE (Negative); Urine Ketones NEGATIVE (Negative); Urine Microscopic Reflex YN ORDER UMIC; Urine Nitrite NEGATIVE (Negative); Urine Protein 1+ (Negative); Urine RBC <5 /HPF (None Seen); Urine Urobilinogen Normal (Normal); Urine WBC <5 /HPF (<5); Urine pH 5.5 (5.0-7.0)
[2024-02-10] MEDS: ARFORMOTEROL TARTRATE 15 MCG/2 ML VIAL.NEB NEB SCH (20:06)
[2024-02-10] MEDS: carvediloL 6.25 MG TAB PO SCH (20:09)
[2024-02-10] MEDS: ATORVASTATIN 80 MG TAB PO SCH (20:11)
[2024-02-10] MEDS: predniSONE 20 MG TAB PO SCH (20:11)
[2024-02-10] MEDS ORDERED: ATORVASTATIN 10 MG TAB PO SCH (21:00)
[2024-02-11] MEDS: FAMOTIDINE 20 MG/2 ML VIAL IV PRN (04:52)
[2024-02-11 05:27] LABS: Absolute Lymphocytes (CBC) 0.7 K/uL (0.7-4.9); Absolute Monocytes 2.1 K/uL (0.1-1.3); Absolute Neutrophil 15.3 K/uL (1.8-8.0); Basophils % 0.2 % (0-1.3); Hematocrit 26.1 % (39.6-49.0); Hemoglobin 8.9 g/dL (13.6-17.9); Lymphocytes % 3.8 % (15.3-44.8); MCH 29.8 pg (27.0-35.0); MCV 87.7 fL (80-100); MPV 8.1 fL (7.6-11.3); Monocytes % 11.7 % (3.3-12.3); Neutrophils % 84.3 % (41.7-73.7); Nucleated Red Blood Cells % 0.1 % (0-0); Platelets 397 thou/uL (152-406); RBC Red Blood Cell Count 2.98 M/uL (4.33-5.43)
[2024-02-11 05:34] LABS: Anion Gap 6.2 mEq/L (5.0-15.0); Magnesium 2.1 mg/dL (1.6-2.4); Phosphorus 2.6 mg/dL (2.5-4.9); Potassium 4.2 mEq/L (3.5-5.1)
--- NOTE | 2024-02-11 06:54 | ECHO ---
HEIGHT: 5 ft 5 in WEIGHT: 133 lb 6.4 oz DATE OF STUDY: 02/10/[address]: Edda Hanson MD 2-DIMENSIONAL: YES M.MODE: YES DOPPLER: YES COLOR FLOW: YES TDS: PORTABLE: YES DEFINITY: BUBBLE STUDY: DIAGNOSIS: ELEVATED BNP CARDIAC HISTORY: CATHERIZATION: YES SURGERY: PROSTHETIC VALVE: PACEMAKER: MEASUREMENTS (cm) DIASTOLIC (NORMALS) SYSTOLIC (NORMALS) IVSd 1.3 (0.6-1.2) LA Diam 4.2 (1.9-4.0) LVEF 60-65% LVIDd 4.6 (3.5-5.7) LVIDs 3.6 (2.0-3.5) %FS 20% LVPWd 1.4 (0.6-1.2) Ao Diam 2.2 (2.0-3.7) 2 DIMENSIONAL ASSESSMENT: RIGHT ATRIUM: NORMAL LEFT ATRIUM: NORMAL RIGHT VENTRICLE: NORMAL LEFT VENTRICLE: MILD LEFT VENTRICULAR HYPERTROPHY TRICUSPID VALVE: TRICUSPID REGURGITATION MITRAL VALVE: NORMAL PULMONIC VALVE: MILD PULMONIC REGURGITATION AORTIC VALVE: MILD TO MODERATE AORTIC REGURGITATION PERICARDIAL EFFUSION: NONE AORTIC ROOT: NORMAL LEFT VENTRICULAR WALL MOTION: NORMAL DOPPLER/COLOR FLOW: GRADE II DIASTOLIC DYSFUNCTION COMMENTS: 1. NORMAL LEFT VENTRICULAR SYSTOLIC FUNCTION, EJECTION FRACTION 60-65%, NORMAL WALL MOTION 2. GRADE II DIASTOLIC DYSFUNCTION 3. MILD TO MODERATE AORTIC REGURGITATION 4. MODERATE PULMONARY HYPERTENSION (RIGHT VENTRICULAR SYSTOLIC PRESSURE 55-60 mmHg) 5. ELEVATED FILLING PRESSURE (RIGHT ATRIUM PRESSURE 15-20 mmHg) TECHNOLOGIST: MIGUEL GODOY [facility]
--- NOTE | 2024-02-11 07:10 | P.PN ---
Subjective Date of Service: 02/11/24 Chief Complaint: Hypoxic respiratory failure Subjective: Improving (pt had clear LHC 02/10/24, He is scheduled to have an ECHO this am. He is adamant about going home today) <GilEtta Bridges - Last Filed: 02/11/24 07:11> Date of Service: 02/11/24 <Brinane Scott - Last Filed: 02/14/24 15:40> Review of Systems 10-point ROS is otherwise unremarkable General: As per HPI Respiratory: Cough, Shortness of Breath, SOB with Excertion, As per HPI Cardiovascular: Other (denies CP) <Radha Corderobrittanie Bridges - Last Filed: 02/11/24 07:11> Physical Examination - Vital Signs Temperature: 98.4 F Blood Pressure: 125/33 Pulse: 64 Respirations: 16 Pulse Ox (%): 100 - Physical Exam General: In no apparent distress, Disheveled HEENT: Normocephalic Neck: Supple Respiratory: Normal air movement Cardiovascular: Regular rate/rhythm, Normal S1 S2 Capillary refill: <2 Seconds Gastrointestinal: Soft and benign Musculoskeletal: No clubbing Integumentary: No rashes Neurological: Normal speech, Normal tone, Normal affect Lymphatics: No axilla or inguinal lymphadenopathy External genitalia: Deferred Rectal: Deferred <Radha Corderoy Cyrus - Last Filed: 02/11/24 07:11> Assessment And Plan - Plan - Plan Assessment plan Acute hypoxic respiratory failure secondary to COPD exacerbation Lactic acidosis sepsis without shock chest pain with inspiration asbestos calcified pleural plaques Pulmonary nodule Dr. Zambrano consulted, BiPAP ordered,repeat ABG, Lactic ordered - 02/11/24 resolved, pt on 2L via NC as per his home routine plan to admit to ICU on telemetry, nephrology eval for bicarb drip on lactic acid, pulmonology consult, 02/09 Dr. Addison has seen the pt and added CCB, no bicarb drip, Dr. Coleman has also seen the patient and started Levaquin, Prednisone, and Duo nebs Smoking cessation recommended CT of the chest e calcified central mesenteric lymph nodes measuring up to 1.5 cm. There are extensive mostly calcified bilateral pleural plaques. Central airways are patent. There is an irregular nodular opacity in the left upper lobe measuring 15 mm. There is moderate upper lung centrilobular emphysema. Extensive calcified pleural plaques. Suspicious left solid pulmonary nodule within the upper lobe measuring 15 mm. Per Fleischner Society Guidelines, consider a noncontrast Chest CT at 3 months, a PET/CT, or tissue sampling. ER physician went over pulmonary nodule screening with patient and family at bedside. Hypertensive urgency As needed antihypertensive - Dr. Sadler started coreg 6.25mg po BID, Dr. Addison added CCB Telemetry NSTEMI 02/10/24 Consult cardiology - Dr. Sadler took pt to cathodic protection technician for LHC. no intervention. ECHO ordered. manage HTN urgency aggressively Full code DVT lovenox Diet clear liquid advance as tolerated Disposition Home with home O2 Discharge Plan: Home 24h <Etta Cordero - Last Filed: 02/11/24 07:11> Date of Service: 02/11/24 Patient was seen and examined. Events of the last 24 hours have been noted. Spoke with with [facility]ONE regarding patient's clinical picture after evaluating and examining the patient independently. I performed a substantial part of the MDM during this patient's care today. I personally made or approved the documented management plan and acknowledge its risk of complications. I agree with the findings and documentation provided in the TYRONE's notes. <Brianne Scott - Last Filed: 02/14/24 15:40>
[2024-02-11] MEDS: levoFLOXacin 500 MG TAB PO SCH (08:20)
[2024-02-11] MEDS: AMLODIPINE 5 MG TAB PO SCH (08:20)
[2024-02-11] MEDS ORDERED: VANCOMYCIN 1 GM in NA CHLORIDE 0.9% 250 ML IVPB SCH (09:00)
[2024-02-11 12:50] VITALS: TEMP 97.8; O2SAT 99
--- NOTE | 2024-02-11 14:41 | P.PN ---
Subjective Date of Service: 02/11/24 Chief Complaint: Hypoxic respiratory failure Subjective: No new changes, No C/O voiced, Tolerating diet, Ambulating, Improving Review of Systems 10-point ROS is otherwise unremarkable Physical Examination - Vital Signs Temperature: 97.8 F Blood Pressure: 155/38 Pulse: 75 Respirations: 18 Pulse Ox (%): 100 - Physical Exam General: Alert, In no apparent distress HEENT: Atraumatic, PERRLA, EOMI Neck: Supple, JVD not distended Respiratory: Clear to auscultation bilaterally, Normal air movement Cardiovascular: Regular rate/rhythm, Normal S1 S2 Gastrointestinal: Normal bowel sounds, No tenderness Musculoskeletal: No tenderness Integumentary: No rashes Neurological: Normal speech, Normal tone, Normal affect Lymphatics: No axilla or inguinal lymphadenopathy - Studies Medications List Reviewed: Yes Assessment And Plan - Current Problems (Diagnosis) (1) NSTEMI (non-ST elevated myocardial infarction) Current Visit: Yes Status: Acute Plan: Coronary angiogram done and shows normal coronaries, Echo shows normal EF. ASA 81 mg daily Lipitor 80 mg daily (2) Elevated brain natriuretic peptide (BNP) level Current Visit: Yes Status: Acute Plan: switch lasix to 40 mg po BID on discharge. continue Coreg 6.25 mg po BID Echo shows normal EF with DD and moderate pulmonary hypertension (3) HTN (hypertension) Current Visit: Yes Status: Acute Plan: Coreg 6.25 mg po BID
--- NOTE | 2024-02-11 14:47 | P.DS ---
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 He reports wheezing for the last 3 to 4 days. He reports symptoms worse over the last hour. He reports use of home O2 at 2 L at baseline on arrival to the emergency room is 83% on 2 L he reports smoking history of 3 packs a day, currently smoking 1 pack a day, requesting to vape, pulmonary nodule, ER physician discussed results with patient and family at bedside. hypertensive urgency, BP 229 / 88; Pulse 124; Resp 34; Pulse Ox 84% on 2 lpm NC, Lactic acidosis 8, 2 A of bicarb given, cefepime 1 g, Solu-Medrol, magnesium, given, sepsis IV fluids given, plan to admit to ICU for sepsis without shock, chest pain with inspiration, COPD exacerbation, asbestos, calcified pleural plaques, Dr. Zambrano consulted, BiPAP ordered, CT of the chest e calcified central mesenteric lymph nodes measuring up to 1.5 cm. There are extensive mostly calcified bilateral pleural plaques. Central airways are patent. There is an irregular nodular opacity in the left upper lobe measuring 15 mm. There is moderate upper lung centrilobular emphysema. Abdomen: There are several small anterior hepatic cyst. There is no biliary dilatation. Gallbladder is normal in appearance. The pancreas and spleen are normal in appearance. Right adrenal adenoma measures 4.2 cm. Left adrenal gland is unremarkable. Kidneys are normal in size. There is nodular versus. Abdominal aorta is densely calcified without aneurysm. There is no free air. There is no retroperitoneal adenopathy. Pelvis: There is no bowel obstruction. Urinary bladder is unremarkable. There is no free fluid. Extensive calcified pleural plaques. Suspicious left solid pulmonary nodule within the upper lobe measuring 15 mm. Per Fleischner Society Guidelines, consider a noncontrast Chest CT at 3 months, a PET/CT, or tissue sampling. These guidelines do not apply to immunocompromised patients and patients with cancer. Follow up in patients with significant comorbidities as clinically warranted. For lung cancer screening, adhere to Lung-RADS guidelines. ER physician went over pulmonary nodule screening with patient and family at bedside. Hospital Course: Patient has done well during hospitalization. Patient had elevated troponin and cardiac catheterization revealed nonobstructive coronary artery disease. Tamar ent with severe COPD and is on oxygen at home. He will continue and will add steroids, antibiotics, nebulizer treatments. Patient will need close outpatient follow-up with pulmonary. At this time, patient is clinically doing well and stable for discharge home. Vital Signs/Physical Exam: Temp Pulse Resp BP Pulse Ox 97.8 F 75 18 155/38 H 100 02/11/24 14:41 02/11/24 14:41 02/11/24 14:41 02/11/24 14:41 02/11/24 14:41 General: Alert, In no apparent distress, Oriented x3 Respiratory: Expiratory wheezes Laboratory Data at Discharge: WBC 18.20 thou/uL (4.3-10.9) H 02/11/24 04:45 Hgb 8.9 g/dL (13.6-17.9) L 02/11/24 04:45 Hct 26.1 % (39.6-49.0) L 02/11/24 04:45 Plt Count 397 thou/uL (152-406) 02/11/24 04:45 PT 11.7 SECONDS (9.4-12.5) 02/10/24 12:00 INR 1.05 02/10/24 12:00 APTT Cancelled 02/10/24 23:45 Sodium 135 mEq/L (136-145) L 02/11/24 04:45 Potassium 4.2 mEq/L (3.5-5.1) 02/11/24 04:45 BUN 21 mg/dL (7-18) H 02/11/24 04:45 Creatinine 1.18 mg/dL (0.70-1.30) 02/11/24 04:45 Glucose 273 mg/dL (74-106) H 02/11/24 04:45 Phosphorus 2.6 mg/dL (2.5-4.9) 02/11/24 04:45 Magnesium 2.1 mg/dL (1.6-2.4) 02/11/24 04:45 Total Bilirubin 0.3 mg/dL (0.2-1.0) 02/10/24 00:51 AST 164 U/L (15-37) H 02/10/24 00:51 ALT 105 U/L (16-61) H 02/10/24 00:51 Alkaline Phosphatase 111 U/L (45-117) 02/10/24 00:51 Imagings Data: Echocardiogram COMMENTS: 1. NORMAL LEFT VENTRICULAR SYSTOLIC FUNCTION, EJECTION FRACTION 60-65%, NORMAL WALL MOTION 2. GRADE II DIASTOLIC DYSFUNCTION 3. MILD TO MODERATE AORTIC REGURGITATION 4. MODERATE PULMONARY HYPERTENSION (RIGHT VENTRICULAR SYSTOLIC PRESSURE 55-60 mmHg) 5. ELEVATED FILLING PRESSURE (RIGHT ATRIUM PRESSURE 15-20 mmHg) Home Medications: Albuterol Inhaler [Ventolin Inhaler*] 2 puff IH DAILY 02/10/24 Atorvastatin Calcium 10 mg PO DAILY 02/10/24 Brompheniramine/Pseudoephed/Dm [Bromfed Dm 2-30-10 mg/5 ml Syr] 10 mg PO Q6HR 02/10/24 Empagliflozin [Jardiance] 10 mg PO DAILY 02/10/24 Levocetirizine Dihydrochloride [Allergy Relief] 5 mg PO BEDTIME 02/10/24 Metformin HCl 500 mg PO DAILY 02/10/24 Nitroglycerin 1 tab SL PRN 02/10/24 Pantoprazole [Protonix Tab*] 20 mg pe PO DAILY 02/10/24 Ropinirole HCl 1 mg PO DAILY 02/10/24 Spironolactone 25 mg PO DAILY 02/10/24 Tizanidine HCl 2 mg PO PRN 02/10/24 lisinopriL [Lisinopril] 40 mg PO DAILY 02/10/24 ALPRAZolam [Xanax*] 0.5 mg PO BID #30 tab 02/11/24 Albuterol Neb [Proventil 0.083% Neb Soln] 2.5 mg NEB [id number] PRN #90 amp 02/11/24 Amlodipine [Norvasc*] 5 mg PO DAILY #30 tab 02/11/24 Arformoterol Tartrate [Brovana] 15 mcg NEB BIDRESP #60 vial.neb 02/11/24 Atorvastatin Calcium [Lipitor] 80 mg PO BEDTIME #30 tab 02/11/24 Ipratropium Neb [Atrovent*] 0.5 mg NEB [id number] #60 amp 02/11/24 Nebulizer 1 each MC DAILY #1 ea 02/11/24 Nebulizer Accessories [Aeroneb Go] 1 each MC DAILY #1 ea 02/11/24 Nicotine [Nicoderm*] 14 mg TD DAILY #30 patch 02/11/24 carvediloL [Coreg*] 6.25 mg PO BID #60 tab 02/11/24 levoFLOXacin [Levaquin*] 500 mg PO DAILY #7 tab 02/11/24 predniSONE [Prednisone*] 20 mg PO BID #20 tab 02/11/24 New Medications: Nebulizer Accessories [Aeroneb Go] 1 each MC DAILY #1 ea Ipratropium Neb [Atrovent*] 0.5 mg NEB [id number] #60 amp Arformoterol Tartrate [Brovana] 15 mcg NEB BIDRESP #60 vial.neb carvediloL [Coreg*] 6.25 mg PO BID #60 tab levoFLOXacin [Levaquin*] 500 mg PO DAILY #7 tab Atorvastatin Calcium [Lipitor] 80 mg PO BEDTIME #30 tab Nebulizer 1 each MC DAILY #1 ea Nicotine [Nicoderm*] 14 mg TD DAILY #30 patch Amlodipine [Norvasc*] 5 mg PO DAILY #30 tab predniSONE [Prednisone*] 20 mg PO BID #20 tab Albuterol Neb [Proventil 0.083% Neb Soln] 2.5 mg NEB [id number] PRN #90 amp PRN Reason: Shortness Of Breath ALPRAZolam [Xanax*] 0.5 mg PO BID #30 tab Physician Discharge Instructions: -DC IV and DC home -Follow-up with PCP in 1 to 2 weeks -Follow-up with Pulmonary and Cardiology in 1 to 2 weeks -Please call Dr. Scott at [phone] if any questions regarding hospital stay -Please call nursing station at [phone] if any nursing or medication questions -Return to the emergency room if symptoms worsen Diet: AHA Activity: Fall precautions Followup: NONE,NONE [Primary Care Provider] - Time spent managing pt's care (in minutes): 35
[2024-02-11 15:15] VITALS: BP 167/46
--- NOTE | 2024-02-11 16:03 | OP ---
Date of Procedure: 02/10/2024 Surgeon: Eddie Sadler Procedures Performed: 1.Left heart catheterization. 2.Selective coronary angiogram. Indication For Procedure: [id number] MN. Complications: None. Estimated Blood Loss: Less than 50 cc. Sedation Time: 20 minutes with 1 of Versed and 25 of fentanyl. Access: Right radial, closed by TR band. Description Of Procedure: After risks, and benefits, and alternatives were explained to patient, pat ient agreed to proceed with the procedure and signed informed consent. The patient was brought back to the chemical laboratory chief and prepped and draped in a sterile fashion. Time-out was performed. Sedation was a dministered. Next, the right radial ultrasound-guided micropuncture technique, access was obtained. [place] 4.0 catheter was advanced to the LV cavity. LVEDP was obtained. Pullback did not show any gr adient. Same catheter was used for selective angiogram of the left and right coronary systems. At t he end of procedure, catheter was removed over a J-wire. Sheath was removed. TR band was applied an d the patient was moved to recovery in stable condition. Findings: 1.Left main normal. 2.LAD normal. 3.Left circ; dominant, mild luminal irregularities. 4.RCA; small, normal. 5.LVEDP 16 mmHg. Assessment And Plan: 1.Normal coronaries. 2.Mild elevated filling pressure. Plan will be to continue medical management. NEW/TITO Voice ID: [id number] Report ID: [id number]
--- NOTE | 2024-02-11 23:18 | PN ---
Date of Progress Note: 02/11/2024 Chief Complaint: Metabolic acidosis, electrolyte imbalance. Subjective: The patient is an 78-year-old man with past medical history of COPD. He is oxygen depen dent. He has history of asbestosis and he is an active smoker. The patient came to the hospital bec ause of shortness of breath. He was found to have acidosis. Nephrology consultation was consulted f or electrolyte abnormalities and acid-base disorder. The patient was found to have lactic acidosis, and he denied history of diabetes mellitus related problems and denies nonsteroidal anti-inflammatory medication. Past Medical History: COPD, pulmonary nodules, pleural effusion. Social History: Denies drugs, although he is active smoker and active alcohol user. Review of Systems: Denies fever, chills. Denies chest pain, palpitation, syncope. Physical Examination: Lungs: Few rhonchi. Heart: S1, S2. Tachycardia. Abdomen: Soft, benign. Extremities: No edema. Laboratory Work: Showed BUN 18, creatinine 0.9. Hemoglobin 9.6. BNP 5011. ABG, pH 7.25, CO2 of 55 . Repeat ABG showed pH 7.3, pCO2 of 50, and pO2 of 98, saturation 93%. Urinalysis was negative for infection. Impression And Plan: 1.Acidosis secondary to hypercapnic respiratory acidosis and lactic acidosis with hypoxemia secondar y to obstructive pulmonary disease. The patient was instructed about smoking cessation. 2.Adrenal adenoma. The patient needs to follow up outpatient for further workup. 3.Hypertension, controlled. 4.History of obstructive pulmonary disease. The patient will follow up with Pulmonary physician. T he patient was started on a calcium channel elijah for hypertension. 5.Prerenal azotemia. Continue adequate p.o. fluid intake. Avoid nonsteroidal anti-inflammatory med ication. EB/MODL Voice ID: [id number] Report ID: [id number]
== END 2024-02-11 15:45 | disposition home or self-care (01) | DRG 871 ==
LOC: ER 00:29 → ERHOLD 04:56 → 3RD-ICU 05:45
PROVIDERS: ADMIT Hospitalist; ATTEND Hospitalist
PROC: 4A023N7 Measurement of Cardiac Sampling and Pressure, Left Heart, Percutaneous Approach (ICD-10-PCS; principal; 2024-02-10)
PROC: B2111ZZ Fluoroscopy of Multiple Coronary Arteries using Low Osmolar Contrast (ICD-10-PCS; 2024-02-10)
PROC: 02HV33Z Insertion of Infusion Device into Superior Vena Cava, Percutaneous Approach (ICD-10-PCS; 2024-02-10)
DX: A41.9 Sepsis, unspecified organism (principal); I21.4 Non-ST elevation (NSTEMI) myocardial infarction; J96.01 Acute respiratory failure with hypoxia; E87.20 Acidosis, unspecified; J44.1 Chronic obstructive pulmonary disease with (acute) exacerbation; N17.9 Acute kidney failure, unspecified; R65.20 Severe sepsis without septic shock; I10 Essential (primary) hypertension; I16.0 Hypertensive urgency; I27.20 Pulmonary hypertension, unspecified; J61 Pneumoconiosis due to asbestos and other mineral fibers; I25.10 Atherosclerotic heart disease of native coronary artery without angina pectoris; F17.210 Nicotine dependence, cigarettes, uncomplicated; R91.8 Other nonspecific abnormal finding of lung field; Z88.0 Allergy status to penicillin; Z99.81 Dependence on supplemental oxygen; Z79.52 Long term (current) use of systemic steroids; Z79.84 Long term (current) use of oral hypoglycemic drugs; Z79.899 Other long term (current) drug therapy
CPT/HCPCS: 36415; 36569; 36600; 71045; 71250; 74176; 76937; 80048; 80053; 80074; 80307; 81001; 82805; 82947; 83605; 83735; 83880; 84100; 84484; 85025; 85610; 85730; 87040; 87070; 87205; 87804; 87811; 93005; 93306; 93458; 94640; 94660; 99152; 99153; 99285; C1893; J0461; J0692; J1644; J1940; J2001; J2250; J2919; J3010; J3475; J7030; J7040; J7050; J7512; J7605; J7613; J7644; Q9966